=== PATIENT | male | born 1970 | race Caucasian/White ===

== ENCOUNTER → 2016-08-19 | Outpatient (CLI) | payer BC ==
[~2016-08-19] MED LIST: AMLO-114 PO; ASPI81TA28 PO; ATOR-22 PO; CARV25TA2 PO; CRDCD240 PO; HYDR-4717 PO; LISI40TA PO; METF500T5 PO
[2016-08-19 09:59] LABS: ALT/SGPT 34 U/L (12-78); BLOOD UREA NITROGEN 10 mg/dl (7-18); BUN/CREATININE RATIO 8.7 (10-20); CARBON DIOXIDE 25 mmol/L (21-32); CHLORIDE 108 mmol/L (98-107); CHOLESTEROL 141 mg/dl (0-200); GLUCOSE 134 mg/dl (70-99); POTASSIUM 4.1 mmol/L (3.5-5.1); SODIUM 143 mmol/L (136-145); TRIGLYCERIDES 101 mg/dl (0-150); VERY LOW DENSITY LIPOPROT CALC 20 mg/dl
[2016-08-19 10:06] LABS: ALB/GLOB RATIO 1.1 (0.9-2); ALKALINE PHOSPHATASE 96 U/L (45-117); AST/SGOT 13 U/L (15-37); HDL CHOLESTEROL 47 mg/dl; LDL CHOLESTEROL CALCULATED 74 mg/dl
[2016-08-19 10:09] LABS: ESTIMATED AVERAGE GLUCOSE 140 mg/dl; HA1C FLAG Normal (Normal)
== END | disposition home or self-care (01) ==
LOC: C.LAB1850 08:01
PROVIDERS: ATTEND Family Medicine
DX: I10 Essential (primary) hypertension (principal); E78.00 Pure hypercholesterolemia, unspecified; E11.9 Type 2 diabetes mellitus without complications

== ENCOUNTER 2023-03-14 09:15 | Observation (INO) ==
--- NOTE | 2023-03-14 10:44 | Emergency Department Note ---
ED Provider Note History of Present Illness Chief Complaint: Skin Problem Stated Complaint: abscess with cellulitous Time Seen by Provider: 03/14/23 10:43 This is a 60-year-old male with a history of diabetes, atrial fibrillation on Xarelto, accompanied by his , who is referred to the emergency department by [facility] for worsening infection in his right groin. Patient states that he developed a small bump in this area about 2 weeks ago which has subsequently worsened. He was seen 3 days ago and placed on doxycycline and has been taking this medication but states the infection is getting worse, not better. It is more swollen and the redness has continued to progress. It has drained pus multiple times. He has not had any fevers or chills, no nausea or vomiting. No known history of MRSA. Does not routinely check his blood sugars. Home Medications Medication Instructions Recorded Confirmed Type metformin 1,000 mg tablet 1,000 mg PO BID #180 tabs 10/17/22 03/14/23 Rx carvedilol 25 mg tablet 25 mg PO BID #180 tabs 12/13/22 03/14/23 Rx amlodipine 10 mg tablet 10 mg PO PM 03/14/23 03/14/23 History atorvastatin 20 mg tablet 20 mg PO PM 03/14/23 03/14/23 History doxycycline hyclate 100 mg capsule 100 mg PO BID 03/14/23 03/14/23 History lisinopril 40 mg tablet 40 mg PO PM 03/14/23 03/14/23 History rivaroxaban 20 mg tablet (Xarelto) 20 mg PO PM 03/14/23 03/14/23 History Allergies Allergy/AdvReac Type Severity Reaction Status Date / Time No Known Allergies Allergy Unknown Verified 03/14/23 13:40 Past Med/Surg History Medical History History of colon polyps Hx of Lyme disease [place] JUNE 2021? Hx of gout Prediabetes Hx of basal cell carcinoma Hx of testicular cancer SURGERY>LATER METS TO LIVER/LUNG REQUIRING CHEMO Hx of blood clots 2002>CLOT TO ARM *DURING CHEMO (WAS ON BLOOD THINNERS) Hx of cardiomyopathy History of COVID-02 AUG 2021>SYMPTOMS RESOLVED Sleep apnea MILD>NO DEVICE Interstitial pulmonary fibrosis Peripheral neuropathy Obesity CAD (coronary artery disease) Dyslipidemia Hypertension Surgical History Hx of colonoscopy History of tooth extraction History of cardiac cath NO STENTS (2012) History of bronchoscopy History of orchiectomy, unilateral left Family History Grandfather Myocardial infarction Mother Hypertension Other No family history of adverse response to anesthesia Denies family history of Colon cancer Ovarian cancer Prostate cancer Diabetes Breast cancer Lung cancer Stroke Social History Smoking Status: Never smoker Second Hand Exposure: No; Do You Dip or Chew Tobacco: No; Hx Alcohol Use: Yes Alcohol type: beer Alcohol Intake Frequency: 4 or More x per/Week Alcohol Intake Frequency Comment: 4 -5 drinks/week Hx Substance Use: No Preferred Language: Albanian Communication Ability: Effective Visual Impairment: No Limitations Hearing Ability: Normal Auto Design Detailer Required: No Beliefs That Will Affect Care: None marital status: Current Living Situation: Spouse current occupational status: employed 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 How many Children do You have: 1 Feels Safe at Home: Yes Childhood Exposure to Second-Hand Smoke: No Diet: regular caffeine: Yes during the past year weight has: remained stable Dental Care, Regularly: Yes Physical Activity Frequency: 1-2 Times per Week Physical Activity Frequency Comment: walking Seatbelt Use: always Sunscreen Use: Yes Assistive Devices: Glasses Physical Exam Vital Signs Vital Signs - 24 hr 03/14/23 09:30 03/14/23 12:45 Temperature 97.9 F Temperature Source Temporal Artery Scan Pulse Rate 79 Pulse Rate [Finger] 81 Respiratory Rate 18 18 Respiratory Effort / Characteristics Non-Labored Spontaneous Respiratory Depth Normal Respiratory Pattern Regular Blood Pressure 133/94 Blood Pressure [Right Arm] 130/96 Blood Pressure Mean 107 Blood Pressure Mean [Right Arm] 107 Blood Pressure Position Sitting Pulse Oximetry 97 95 Oxygen Delivery Method Room Air Room Air Sepsis Recent Fever Within 48 Hours No Sepsis New/Unexplained Change in Mental Status N/A Sepsis Action Taken by Nursing No Action Required CONSTITUTIONAL: Well developed, well nourished, in no acute distress, pleasant. EYES: conjunctivae normal, extraocular muscles intact. NECK: Full active range of motion. LYMPHATIC: Possible right inguinal adenopathy RESPIRATORY: Breathing unlabored and symmetric. ABDOMEN: Normal bowel sounds. Soft, nontender, no peritonitis. MUSCULOSKELETAL: Moves all extremities at all joints without pain or difficulty. No cyanosis or edema. Back with full range of motion. SKIN: [place], warm, dry. There is an abscess present on the right anterior hip overlying the anterior superior iliac spine. This feels fluctuant and there is significant surrounding erythema roughly 8 by 15 cm. The underlying erythema is indurated and tender. There is no active drainage NEUROLOGIC: Awake, alert, oriented. No focal deficits PSYCHIATRIC: Appropriate. Normal affect Course Administered Medications Rivaroxaban (Rivaroxaban 20 Mg Tab) 20 mg PO QDD THADDEUS Stop: 04/13/23 17:14 Last Admin: 03/14/23 17:31 Dose: 20 mg Documented By: JKB Discontinued Medications Cefepime HCl (Maxipime) 2,000 mg in 20 mls @ 5 mls/min IV NOW STA; Protocol Stop: 03/14/23 11:14 Last Admin: 03/14/23 11:22 Dose: 5 mls/min Documented By: DARCIE Vancomycin HCl 2,500 mg/ (Sodium Chloride) 550 mls @ 200 mls/hr IV NOW ONE Stop: 03/14/23 14:47 Last Infusion: 03/14/23 16:05 Dose: Infused Documented By: Admin: 03/14/23 12:39 Dose: 200 mls/hr Documented By: HASMUKH Ioversol (Optiray 320 500ml) 84 ml IV ONCE ONE Stop: 03/14/23 12:25 Last Admin: 03/14/23 12:25 Dose: 84 ml Documented By: EDK Medical Decision Making Differential Diagnosis Abscess, cellulitis, diabetic wound, fistula, necrotizing soft tissue infection, hypoglycemia, electrolyte imbalance, sepsis, among other pathology Laboratory Data 03/14/23 11:15 03/14/23 11:15 Lab Results 03/14/23 Range/Units 11:15 WBC 8.78 (4.8-10.8) K/ul RBC 5.06 (4.70-6.10) M/uL Hgb 14.7 (14.0-18.0) g/dl Hct 43.2 (42.0-52.0) % MCV 85.4 (80.0-100.0) fL MCH 29.1 (25.0-34.0) pg MCHC 34.0 (32.0-36.0) g/dL RDW Std Deviation 40.8 (36.4-46.3) fL RDW Coeff of [place] 13.2 (11.5-14.5) % Plt Count 262 (130-400) K/uL MPV 11.2 (9.4-12.4) fL Immature Gran % (Auto) 0.5 % Neut % (Auto) 59.2 % Lymph % (Auto) 26.4 % [place] % (Auto) 10.5 % Eos % (Auto) 3.1 % Baso % (Auto) 0.3 % Neut # (Auto) 5.20 (1.40-6.50) K/uL Lymph # (Auto) 2.32 (1.20-3.40) K/uL [place] # (Auto) 0.92 H (0.11-0.59) K/uL Eos # (Auto) 0.27 (0.00-0.50) K/uL Baso # (Auto) 0.03 (0.00-0.20) K/uL Immature Gran # (Auto) 0.04 (0.01-0.20) K/uL Sodium 136 (136-145) mmol/L Potassium 4.1 (3.5-5.1) mmol/L Chloride 102 (98-107) mmol/L Carbon Dioxide 26 (21-32) mmol/L Anion Gap 8 (3-11) BUN 13 (6-23) mg/dl Creatinine 0.94 (0.6-1.4) mg/dl Est Cr Clr Drug Dosing 137.1 ml/min Est GFR ( Amer) 109.1 ml/min Est GFR (Non-Af Amer) 94.2 ml/min BUN/Creatinine Ratio 13.8 (10-20) Glucose 186 H (70-99(Fasting)) mg/dl Calcium 9.3 (8.6-10.3) mg/dl Total Bilirubin 0.9 (0.2-1.0) mg/dl AST 17 (13-39) U/L ALT 27 (7-52) U/L Alkaline Phosphatase 100 (34-104) U/L Total Protein 7.6 (6.0-8.3) gm/dl Albumin 4.3 (3.4-5.0) gm/dl Globulin 3.3 (2.5-4.0) gm/dl Albumin/Globulin Ratio 1.3 (0.9-2) Imaging Data Radiologist's Impression: Abdomen/Pelvis CT 03/14/23 11:08 CT SCAN OF THE ABDOMEN AND PELVIS WITH IV CONTRAST CLINICAL HISTORY: Right groin pain. COMPARISON STUDY: No priors. TECHNIQUE: Following the IV administration of 84 cc of Optiray 320, CT scan of the abdomen and pelvis is performed from the lung bases to the proximal femora. Images are reviewed in the axial, sagittal, and coronal planes. IV contrast was administered without complication. A dose lowering technique was utilized adhering to the principles of ALARA. CT DOSE: 1608.56 mGy.cm FINDINGS: Lung bases: The heart is normal in size and without pericardial effusion. There is advanced coronary artery atherosclerosis. There are numerous calcified granulomas. Scarring/atelectasis is noted at both lung bases. No airspace consolidation typical for pneumonia or pleural effusion is identified. Liver: The contrast-enhanced liver is normal in size, contour, and attenuation. There is no intrahepatic biliary ductal dilatation. The hepatic veins and portal veins are patent. Gallbladder: Unremarkable. Spleen: Normal in size and attenuation. Pancreas: Unremarkable. Adrenal glands: Unremarkable. Kidneys: The contrast enhanced kidneys are normal in size and without hydronephrosis. The kidneys enhance symmetrically. Abdominal vasculature: The abdominal aorta is normal in course and caliber Advanced atherosclerotic calcification. Bowel: There is no bowel obstruction. The appendix is well-visualized and normal. Peritoneum: There is no intraperitoneal free air or abdominal ascites. There is a small fat-containing umbilical hernia. Lymphadenopathy: None. Pelvic viscera: The bladder, prostate, and seminal vesicles are normal as visualized. Skeletal structures: No lytic or blastic lesions are seen. Soft tissues: There is stromal thickening and subcutaneous soft tissue induration noted in the right groin. No fluid collection is seen to suggest abscess. IMPRESSION: 1. Findings suggest cellulitis of the right groin. No fluid collection is seen to indicate abscess. Correlate clinically. 2. There is age-advanced atherosclerotic coronary artery calcification. There is also advanced atherosclerotic calcification of the abdominal aorta. 3. Additional findings as above.. ACT 112: Negative or not required by law. Electronically signed by: Tai Wilhelm M.D. 03/14/2023 12:40 PM MDM Narrative This is a pleasant 52-year-old male who presents to the emergency department with a worsening infection in his right hip/groin region. He has taken doxycycline for 3 days and symptoms are worsening. This has drained multiple times. No systemic symptoms. See above for further details. Infection appears to be central abscess with significant surrounding erythema as described above. Traced with skin marker. Question some right inguinal adenopathy as well. As the patient is failing doxycycline, an IV was inserted and labs were obtained. Patient was treated with cefepime and vancomycin after discussing antibiotic recommendations with the ED clinical pharmacist. Case reviewed with ED attending Dr. Caldwell. We decided to obtain a CT of the abdomen and pelvis to fully evaluate the infection Labs no leukocytosis or anemia. Normal renal function. No electrolyte disturbance. No transaminitis. Glucose elevated 186 CT abdomen pelvis shows cellulitis of the right groin with no fluid collection seen. I attempted to unroof the central aspect of the area of maximal swelling and this yielded blood, no pus. Discussed options for management. [place] that it would be prudent to admit the patient for IV antibiotics given significant worsening on oral doxycycline and risk for this to develop into a systemic infection. Patient agreeable with this plan. Case was reviewed with Shankar Thomas PA-C who agrees to admit the patient under Dr. Bond Impression Cellulitis of groin, right Discharge Plan Visit Data Chief Complaint: Skin Problem Stated Complaint: abscess with cellulitous ED Provider: Tai Caldwell ED Midlevel Provider: Kj Lezama Discharge Problem: Cellulitis of groin, right Patient Disposition: Admitted As Inpatient Condition: Fair Discharge Instructions Interventions: ED Discharge Assessment Last Done: 03/14/23 17:05
[2023-03-14] MEDS ORDERED: CEFEPIME 2,000 MG/20 ML VIAL IV STA (11:11)
[2023-03-14 11:36] LABS: Basophils # (auto) 0.03 K/uL (0.00-0.20); Basophils % (auto) 0.3 %; Eosinophils # (auto) 0.27 K/uL (0.00-0.50); Eosinophils % (auto) 3.1 %; Hematocrit (blood only) 43.2 % (42.0-52.0); Hemoglobin 14.7 g/dl (14.0-18.0); Immature Granulocytes # (auto) 0.04 K/uL (0.01-0.20); Immature Granulocytes % (auto) 0.5 %; Lymphocytes # (auto) 2.32 K/uL (1.20-3.40); Lymphocytes % (auto) 26.4 %; Mean Corpuscular Hemoglobin 29.1 pg (25.0-34.0); Mean Corpuscular Volume 85.4 fL (80.0-100.0); Mean Platelet Volume 11.2 fL (9.4-12.4); Monocytes # (auto) 0.92 K/uL (0.11-0.59); Monocytes % (auto) 10.5 %; Neutrophils % (auto) 59.2 %; Platelet Count 262 K/uL (130-400); RDW Coefficient of Variation 13.2 % (11.5-14.5); RDW Standard Deviation 40.8 fL (36.4-46.3); Red Blood Count 5.06 M/uL (4.70-6.10); White Blood Count 8.78 K/ul (4.8-10.8)
[2023-03-14 11:51] LABS: Albumin Globulin Ratio 1.3 (0.9-2); Albumin Level 4.3 gm/dl (3.4-5.0); BUN Creatinine Ratio 13.8 (10-20); Bilirubin,Total 0.9 mg/dl (0.2-1.0); Calcium 9.3 mg/dl (8.6-10.3); Creatinine Clr Calc Pharmacy 137.1 ml/min; Est GFR (African American) 109.1 ml/min; Est GFR (Non-African American) 94.2 ml/min; Globulin 3.3 gm/dl (2.5-4.0); Potassium 4.1 mmol/L (3.5-5.1); Total Protein 7.6 gm/dl (6.0-8.3)
[2023-03-14] MEDS ORDERED: VANCOMYCIN HCL 2,500 MG in SODIUM CHLORIDE 0.9% 500 ML IV ONE (12:03)
[2023-03-14] MEDS ORDERED: VANCOMYCIN CONSULT ACTIVE PRN (12:03)
[2023-03-14] MEDS ORDERED: OPTIRAY 320 500ml IV ONE (12:24)
--- NOTE | 2023-03-14 12:41 | CT Scan Report ---
CT SCAN OF THE ABDOMEN AND PELVIS WITH IV CONTRAST CLINICAL HISTORY: Right groin pain. COMPARISON STUDY: No priors. TECHNIQUE: Following the IV administration of 84 cc of Optiray 320, CT scan of the abdomen and pelvi s is performed from the lung bases to the proximal femora. Images are reviewed in the axial, sagittal , and coronal planes. IV contrast was administered without complication. A dose lowering technique wa s utilized adhering to the principles of ALARA. CT DOSE: 1608.56 mGy.cm FINDINGS: Lung bases: The heart is normal in size and without pericardial effusion. There is advanced coronary artery atherosclerosis. There are numerous calcified granulomas. Scarring/atelectasis is noted at bot h lung bases. No airspace consolidation typical for pneumonia or pleural effusion is identified. Liver: The contrast-enhanced liver is normal in size, contour, and attenuation. There is no intrahepa tic biliary ductal dilatation. The hepatic veins and portal veins are patent. Gallbladder: Unremarkable. Spleen: Normal in size and attenuation. Pancreas: Unremarkable. Adrenal glands: Unremarkable. Kidneys: The contrast enhanced kidneys are normal in size and without hydronephrosis. The kidneys enh ance symmetrically. Abdominal vasculature: The abdominal aorta is normal in course and caliber Advanced atherosclerotic calcification. Bowel: There is no bowel obstruction. The appendix is well-visualized and normal. Peritoneum: There is no intraperitoneal free air or abdominal ascites. There is a small fat-containin g umbilical hernia. Lymphadenopathy: None. Pelvic viscera: The bladder, prostate, and seminal vesicles are normal as visualized. Skeletal structures: No lytic or blastic lesions are seen. Soft tissues: There is stromal thickening and subcutaneous soft tissue induration noted in the right groin. No fluid collection is seen to suggest abscess. IMPRESSION: 1. Findings suggest cellulitis of the right groin. No fluid collection is seen to indicate abscess. C orrelate clinically. 2. There is age-advanced atherosclerotic coronary artery calcification. There is also advanced athero sclerotic calcification of the abdominal aorta. 3. Additional findings as above.. ACT 112: Negative or not required by law. Electronically signed by: Tai Wilhelm M.D. 03/14/2023 12:40 PM
--- OUTSIDE RECORDS SUMMARY | 2023-03-14 13:15 | External Medical Summary | Summary of Care ---
Author Name Unknown Organization [facility] Address [address] [place] [address] Phone [phone] Care Team Providers Care Metal Roofing Mechanic Name Role Phone Juanjo Bond MD Primary Care Provider [phone] Reason for Visit * Reason Comments Genetic Counseling * Evaluate & Treat - Unlimited Visits (Within 10 days (routine)) - Closed Specialty Diagnoses / Procedures Referred By Contjerry t Referred To Contact Medical Genetics / Hematology Oncology Diagnoses History of colonic polyps Case, Rogers Mike, DO [address] [address] Referral ID Status Reason Start Date Expiration Date V isits Requested Visits Authorized [id number] Closed Specialty Services Required 07/12/2022 [id number] Encounter Details Date Type Department Care Team (Latest Contact Info) Description 02/24/2023 10:45 AM EST Telemedicine Genetics [facility], C [address] [place] [address] Devorah Fung, MS [address] [place] [address] Adenoma of colon*; Personal history of colonic polyps; Personal history of testicular cancer; History of basal cell carcinoma; Encounter for nonprocreative genetic counseling Allergies No known active allergiesdocumented as of this encounter (statuses as of 02/27/2023) Medications Medication Sig Dispensed Refills Start Date End Date Status METFORMIN ER 500 MG PO TB24 1 tab twice daily 0 Active ATORVASTATIN CALCIUM 10 MG PO TABS unsure of dosage daily 0 Active ASPIRIN 81 MG PO TABS 1 tab daily 0 Ac tive NIFEDIPINE ER 30 MG PO TB24 1 tab daily 0 Active CARVEDILOL 25 MG PO TABS 1 tab twice daily 0 Active documented as of this encounter (statuses as of 02/27/2023) Active Problems Problem Noted Date Diagnosed Date Multiple pigmented nevi 11/23/2013 History of basal cell carcinoma 11/19/2011 Overview: left posterior neck 12/25 documented as of this encounter (statuses as of 02/27/2023) Social History Tobacco Use Types Packs/Day Years Used Date Smoking Tobacco: Never Alcohol Use Standard Drinks/Week Comments Yes 0 (1 standard drink = 0.6 oz pur e alcohol) occ Sex and Gender Information Value Date Recorded Sex Assigned at Not on file Gender Identity Not on file Sexual Orientation Not on file Job Start Date Occupation Industry Not on file Not on file Not on file documented as of this encounter Patient Instructions * Patient Instructions* Devorah Fung MS - 02/24/2023 11:01 AM EST You met with Devorah Fung MS, [facility] on 02/24/2023 for a Cancer Genetics Risk Assessment. TODAY'S SUMMARY If you have questions about your risk assessment, evaluation, testing process, or results, contact our clinic at [phone] or send a [facility] message. You agreed to complete genetic testing today. Results are expected in ~3 weeks from sample collection and will appear in the [facility] portal under "Test Results." I will contact you with your results. You can request an electronic copy of your report through [facility]: [facility] Patient Registration. Insurance Coverage: The laboratory ([facility] will complete prior authorization for genetic testing and will notify you via text or email of billing policies. If your estimated out of pocket expense after insurance processing is >$100, [facility] will contact you to discuss options based on your specific financial situation. Visit this link for more information or contact the laboratory billing department at [phone] or [email or web address]. Sample Collection: Your blood draw order has been signed and you can visit any [facility] lab to have this collected. Lab order: [facility] [facility] Colon Cancer Genetics Panel Ordering Provider: [facility], , [address] [place] [address], Hours:M-F 7 am - 5 pm; Sat 8 am - 3 pm Read more about genetic testing here: Hereditary Cancer Genetic Testing - Patient Guide For any genetic test, there are three types of results. 1. Negative Result: A mutation that causes increased risk for cancer was not found in you. 2. Positive Result: A genetic risk factor for cancer was found. Based on your specific result, thisinformation could change your medical care. If any significant findings are reported on your testing, we may recommend a follow up visit 3. Inconclusive Result (Variant of Uncertain Significance found): An innocent until proven guilty genetic change was detected, but more research is needed to learn if it increases your chances of developing cancer or not. What should I know about genetics and cancer? Cancer is a common disease, and most often happens by chance. In some families, we can see multiplecases of sporadic cancers, because cancer becomes more common as we age and as people are exposed to different environmental risk factors over time. Only 5-10% of cancers happen because of a genetic mutation that runs in the family. Having a mutation does not mean you will get cancer; it just means you have a higher chance to get cancer than other people. Genetic Information Nondiscrimination Act of 2008: This federal law protects you from discrimination based on your genetic information and applies to health insurance. It is illegal for your health insurer to use family health history and/or genetic test results as a reason to deny you health insurance, or decide how much you pay for your health insurance. IAN does not apply to life, disability and long-term care insurance. For more information, go to [employer].org Sincerely, Devorah Fung MS, [facility] -- Licensed, Certified Genetic Counselor Cancer Genetics Risk Assessment Clinic [facility] (P) [phone] | (F) [phone] | (E) [email or web address] documented in this encounter Progress Notes * Devorah Fung MS - 02/24/2023 10:45 AM EST Cancer Genetic Risk Assessment [facility] | | Email: [email or web address] Location: [place] [address] Dept. Referring Provider: Rogers Moreno DO Name: Andrea Skinner Date: 02/24/2023 - 10:45 AM EST Present for consult: Devorah Patel, , [facility] Visit Type: Phone. The patient is located in the [facility]. The treating clinician is located not in a hospital location. After connecting to the patient via telephone, the patient was identified by name and date of . Patient was then informed that this was a telephone call only visit. The patient agreed to participate. Visit Disposition: Routine follow-up Total call duration was 22 minutes. REASON FOR VISIT: Evaluation for Hereditary Cancer Syndrome HPI: Andrea Skinner is a 52 year old male assigned at who has been referred to the Cancer Genetics Risk Assessment Clinic due to a personal history of multiple colon polyps . ASSESSMENT: Andrea Skinner has a personal history of >20 colon polyps that is concerning for a hereditary predisposition. NCCN criteria for genetic testing for Polyposis is met. Verbal consent for genetic testing obtained. PLAN: Test Ordered: Hereditary Colorectal Cancer Expanded Panel at [facility] (33 genes) Genes Included: APC, JACEK, AXIN2, BLM, BMPR1A, BUB1, BUB1B, CEP57, CHEK2, EPCAM*, FLCN, FOCAD, GALNT12, GREM1*, MBD4, MLH1, MLH3, MSH2, MSH3, MSH6, MUTYH, NTHL1, PALB2, PMS2, POLD1, POLE, PTEN, RNF43,RPS20, SMAD4, STK11, TP53, TRIP13 [facility] Core Panel: Polyposis Results disclosure preferred by: MyG. Blood sample to be collected at a later date; results anticipated in 3 weeks from sample collection. PAST MEDICAL HISTORY: No past cancer history. Breast Hx: No history of breast biopsies or surgeries. Hx: No prior PSA due to age. Testicular cancer dx 2000; s/p chemotherapy and radiation. Gastro Hx: >20 tubular adenomas identified over 2 colonoscopies. First in December 2021, 6mo in June 2022. Derm Hx: Personal history of BCC, s/p excision ~10yrs ago. Other Hx: had a really severe pneumonia years and requried multiple chest xrays No past medical history on file. No past surgical history on file. Social History Tobacco Use Smoking status: Never Smokeless tobacco: Not on file Substance Use Topics Alcohol use: Yes Comment: occ Drug use: No FAMILY HISTORY: This self-reported family history was collected in the absence of complete medical records. ?If the family history changes or more information is obtained, the patient was asked to contact our clinic as this may alter the assessment and recommendations.? No Ashkenazi Anabaptism ancestryreported. Per patient report, no relatives have had genetic testing for inherited cancer risk. . Family History Problem Relation Age of Onset Colon polyps Father Lung cancer Other TOB+ Other (Brain Tumor) Other PEDIGREE: No pedigree images are attached to the encounter RISK ASSESSMENT & CONSULT SUMMARY: I recommended genetic testing for Andrea Skinner based on the personal history of at least 20 adenomasfound over 2 colonoscopies, performed for screening only, at 52 . We discussed the timing and utility of targeted (ie: guidelines-based panels) versus expansive and natarajan-cancer panels. Andrea elected a broad, multi-cancer panel. Polyps: The likelihood to identify a pathogenic/likely pathogenic variant associated with a hereditary polyposis syndrome approaches 10% with the presence of 10 intestinal adenomas (Cheng et al., 2017). In polyposis cases involving <100 polyps, the detection rate of an inherited etiology is substantially lower compared to cases with more than 100 polyps as there is considerable overlap with environmental or sporadic etiologies. The NCCN currently recommends genetic testing for adenomatous polyposis genes in individuals with:,Personal history of 20+ cumulative adenomas. Similarly, the [place] College of Gastroenterologistsrecommend genetic evaluation for an inherited polyposis syndrome is recommended if there are >10cumulative adenomas; the [place] Society of Colon and Rectal Surgeons Clinical Practice Guidelines recommend evaluation for polyposis syndromes if >20 lifetime adenomas. GENETIC TEST EDUCATION: We discussed the risks, benefits, and limitations testing for hereditary cancer syndromes using a multigene panel. Signs of inherited cancer risk: multiple family members with related cancers, cancer in several generations of one side of a family, early-onset cancers (<45y), individuals with >1 cancer diagnosis. Most hereditary cancer conditions are inherited in an autosomal dominant pattern. Cancer riskscan differ between males and females in the same family who share a disease-causing variant. Nature of genetic risk: Individuals with a pathogenic variant in a cancer- related gene may have significantly higher cancer risk. Some cancers may be difficult to detect and/or treat. Identifying those at high risk may warrant additional screening, surveillance, and interventions which could aid inrisk- reduction and early diagnosis, thereby increasing the chances of successful treatment and survival. Nuances of genetic testing: Some genes are well-described with specific screening and management recommendations from national experts (e.g., NCCN). Testing may include newly discovered genes where cancer risk and management guidelines are not well understood or defined. Some cancer types do not have adequate screening available at this time. Genetic Information Non-discrimination Act (IAN) detailed in AVS. This 2008 law has provisions against discrimination based on genetic status for employment and health insurance; it does not cover other insurance (e.g. life insurance, long- term disability insurance). Discussed possible results: Positive result: Pathogenic or Likely Pathogenic Variant identified. Medical management dependent upon the gene in which the P/LP variant was identified and will be discussed at the time of result disclosure. Discussed potential surveillance and early-detection options, risk-reducing medications, and surgical risk reduction options. Discussed that there may be risk to close relatives to have the same genetic variant. Negative result (No variants identified): Medical management and cancer screening will be based on family history and physicians recommendations. Variant of Uncertain Significance ("VUS" identified): Medical management would be the same as a negative result as many VUS are eventually reclassified as benign. If results are negative or VUS, Andrea should continue colon/egd surveillance based on polyp burden alone. If negative, preventative surgery would not be recommended. PSYCHOSOCIAL HISTORY: We discussed the possible psychological implications of genetic testing, issues of family dynamics,and concerns regarding confidentiality, insurance coverage, and genetic discrimination. Motivation for testing: Interested in preventative care and early-detection and concerned about risk to family members Family communication: no concerns. Family Sharing: To be addressed at result disclosure. Consent: I provided an opportunity for the patient to ask questions. We obtained the proper consentand confirmation of the patient's understanding of the information discussed. Devorah Fung MS, [facility] Licensed, Certified Genetic Counselor This note is shared with Andrea Skinner electronically. ICD-10-CM 1. Adenoma of colon D12.6 2. Personal history of colonic polyps Z86.010 3. Personal history of testicular cancer Z85.47 4. History of basal cell carcinoma Z85.828 5. Encounter for nonprocreative genetic counseling Z71.83 documented in this encounter Plan of Treatment Pending Results Name Type Priority Associated Diagnoses Date /Time INVITAE COLON CANCER PANEL Lab Routine Adenoma of colon Personal history of colonic polyps Personal history of testicular cancer History of basal cell carcinoma Encounter for nonprocreative genetic counseling 02/25/2023 11:34 AM EST Scheduled Orders Name Type Priority Associated Diagnoses Orde r Schedule INVITAE COLON CANCER PANEL Lab Routine Adenoma of colon Personal history of colonic polyps Personal history of testicular cancer History of basal cell carcinoma Encounter for nonprocreative genetic counseling Expected: 03/06/2023 (Approximate), Expires: 08/26/2023 Health Maintenance Due Date Last Done Comments Hepatitis B (1 of 3 - 3-dose series) 1972 Lipid Panel 1972 COVID-19 Vaccine (#1) 06/30/1973 Depression Screening 1984 HIV Screening 12/31/1987 Hepatitis C Screening 1990 DTaP,Tdap,and Td Vaccines (1 - Tdap) 12/31/1991 Cologuard 2017 Colonoscopy 2017 Colorectal Cancer Screening 2017 Fecal Occult Blood Test 2017 Sigmoidoscopy 2017 Influenza Vaccine (FLU shot) (#1) 2022 Zoster Vaccines (1 of 2) 2022 GARDASIL-HPV IMMUNIZATION SERIES Aged Out No longer eligible based on patient's age to complete this topic MENINGOCOCCAL (MENACTRA/MENVEO) Aged Out No longer eligible based on patient's age to complete this topic Pneumococcal Vaccine: Pediat rics (0 to 5 Years) and At-Risk Patients (6 to 64 Years) Aged Out No longer eligible b ased on patient's age to complete this topic documented as of this encounter Medical Devices Not on filedocumented as of this encounter Visit Diagnoses Diagnosis Adenoma of colon- Primary Personal history of colonic polyps Personal history of testicular cancer Personal history of malignant neoplasm of testis History of basal cell carcinoma Personal history of other malignant neoplasm of skin Encounter for nonprocreative genetic counseling documented in this encounter Care Teams Metal Roofing Mechanic Relationship Specialty Start Date End Date Juanjo Bond MD [address] [place] [address] PCP - General Internal Medicine 11/24/14 documented as of this encounter
--- OUTSIDE RECORDS SUMMARY | 2023-03-14 13:15 | External Medical Summary | Summary of Care ---
Author Name Unknown Organization [facility] Address [address] [place] [address] Phone [phone] Care Team Providers Care Pet Resort Concierge Name Role Phone Juanjo Bond MD Primary Care Provider [phone] [phone] Reason for Visit * Reason Onset Date Comments Abnormal Test Results 03/12/2023 CHEK2 path ogenic variant Encounter Details Date Type Department Care Team (Late st Contact Info) Description 03/12/2023 Telephone Genetics [facility], C [address] [place] [address] Devorah Fung, MS [address] [place] [address] Abnormal Test Results (CHEK2 pathogenic va... Allergies No known active allergiesdocumented as of this encounter (statuses as of 03/12/2023) Medications Medication Sig Dispensed Refills Start Date [...] as of this encounter (statuses as of 03/12/2023) Active Problems Problem Noted Date Diagnosed Date Multiple pigmented nevi 11/23/2013 History of basal cell carcinoma 11/19/2011 Overview: left posterior neck 12/25 documented as of this encounter (statuses as of 03/12/2023) Social History Tobacco Use Types Packs/Day Years [...] on file documented as of this encounter Miscellaneous Notes * Telephone Encounter - Devorah Fung MS - 03/12/2023 11:56 AM EST I contacted Andrea Skinner today to disclose genetic test results. Spoke to patient directly. Return to Cancer Genetics: 2y Summary: A pathogenic variant in CHEK2 was reported, but CHEK2 is not associated with polyposis. BUB1 and RNF43 variants are still considered preliminary evidence for colorectal cancer (vs polyposis), so I'm not convinced those are viable answers for the polyp development either. We discussed that I think it's most likely Andrea's polyps are related to his past history of radiation therapy due to his testicular cancer. I did also recommend f/u via telehealth with us every 2y for updates to CHEK2 management and to evaluate the role for update testing dependent upon advances in technology. Cancer Risks & Management: - colorectal cancer risk best estimated based on adenoma burden. - at least 5-10% d/t CHEK2 variant. - possible, but not definitive, risk for thyroid and prostate cancers both of which are screened during routine physical exams. Risk to Relatives: Andrea should be encouraged to discuss this result with family members; close relatives have up to a 50% chance of carrying this variant and having the associated increased cancer risk. Brother in [place], sister in [place]. The genetic testing laboratory has a policy of offering genetic testing to family members at no charge for 150 days after [employer] report issue date. Andrea Skinner previously provided verbal consent to share genetic testing results and pedigree with immediate family members for their care. Devorah Fung MS, [facility] Licensed, Certified Genetic Counselor Cancer Genetics Risk Assessment Clinic, [facility] 03/12/2023 * Telephone Encounter - Lola Rapp CHRA - 03/12/2023 8:36 AM EST Genetic test results received for Andrea Skinner. A genetic counselor will contact the patient directly to disclose results. 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 ClinVarID: N/A Test Ordered: Hereditary Colorectal Cancer Expanded Panel at [facility] (33 genes) Genes Included: APC, JACEK, AXIN2, BLM, BMPR1A, BUB1, BUB1B, CEP57, CHEK2, EPCAM*, FLCN, FOCAD, GALNT12, GREM1*, MBD4, MLH1, MLH3, MSH2, MSH3, MSH6, MUTYH, NTHL1, PALB2, PMS2, POLD1, POLE, PTEN, RNF43,RPS20, SMAD4, STK11, TP53, TRIP13 Variant of uncertain significance (VUS) identified: BUB1, c.2951A>G (p.[id number]); ClinVarID: N/A Variant of uncertain significance (VUS) identified: RNF43, c.1114C>T (p.[id number]); ClinVarID: [id number] BALWINDER Garcia 03/12/2023 8:38 AM documented in this encounter Plan of Treatment Health Maintenance Due Date Last Done Comments [...] as of this encounter Visit Diagnoses Diagnosis 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
--- OUTSIDE RECORDS SUMMARY | 2023-03-14 13:15 | External Medical Summary | Summary of Care ---
Author Name Unknown Organization [facility] Address [address] [place] [address] Phone [phone] Care Team Providers Care Certified Solid Waste Facility Operator Name Role Phone Juanjo Bond MD Primary Care Provider [phone] [phone] Reason for Visit * Reason Onset Date Comments Genetic Counseling 07/15/2022 Referral Encounter Details Date Type Department Care Team (Late st Contact Info) Description 07/15/2022 Telephone Genetics Hem[facility], [facility] [address] [place] [address] Nikole Torres CHRA Genetic Counseling (Referral) Allergies No known active allergiesdocumented as of this encounter (statuses as of 02/19/2023) Medications Medication Sig Dispensed Refills Start Date [...] as of this encounter (statuses as of 02/19/2023) Active Problems Problem Noted Date Diagnosed Date Multiple pigmented nevi 11/23/2013 History of basal cell carcinoma 11/19/2011 Overview: left posterior neck 12/25 documented as of this encounter (statuses as of 02/19/2023) Social History Tobacco Use Types Packs/Day Years Used Date Smoking Tobacco: Never Alcohol Use Standard Drinks/Week Comments Yes 0 (1 standard drink = 0.6 oz pur e alcohol) occ Sex and Gender Information Value Date Recorded Sex Assigned at Not on file Gender Identity Not on file Sexual Orientation Not on file documented as of this encounter Miscellaneous Notes * Telephone Encounter - Lola Rapp CHRA - 02/19/2023 2:14 PM EST Images from the original note were not included. I spoke with Andrea Skinner and confirmed an upcoming Cancer Genetics telemedicine appointment with Devorah Fung CGC on 02/24/2023. A family history was gathered and documented. Patient confirmed theywill be in the [facility] for the appointment. BALWINDER Garcia 02/19/2023 2:14 PM documented in this encounter Plan of Treatment Upcoming Encounters Date Type Department Care Team (Late st Contact Info) Description 02/24/2023 10:45 AM EST Telemedicine Genetics [facility], [facility] [address] [place] [address] Devorah Fung, MS [address] [place] [address] Health Maintenance Due Date Last Done Comments [...] Not on filedocumented as of this encounter Care Teams Certified Solid Waste Facility Operator Relationship Specialty Start Date End Date Juanjo Bond MD [address] [place] [address] PCP - General Internal Medicine 11/24/14 documented as of this encounter
--- OUTSIDE RECORDS SUMMARY | 2023-03-14 13:15 | External Medical Summary | Summary of Care ---
Author Name Unknown Organization [facility] Address [address] [place] [address] Phone [phone] Care Team Providers Care Adjunct Writing Instructor Name Role Phone Juanjo Bond MD Primary Care Provider [phone] Reason for Visit * Reason Onset Date Comments Abnormal Test Results 03/12/2023 CHEK2 path ogenic variant Encounter Details Date Type Department Care Team (Late st Contact Info) Description 03/12/2023 Telephone Genetics [facility], C [address] [place] [address] Devorah Fung, MS [address] [place] [address] Abnormal Test Results (CHEK2 pathogenic [...] Ordered: Hereditary Colorectal Cancer Expanded Panel at [facility] (33 genes) Genes Included: APC, JACEK, AXIN2, BLM, BMPR1A, BUB1, BUB1B, CEP57, CHEK2, EPCAM*, FLCN, FOCAD, GALNT12, GREM1*, MBD4, MLH1, MLH3, MSH2, MSH3, MSH6, MUTYH, NTHL1, PALB2, PMS2, POLD1, POLE, PTEN, RNF43,RPS20, SMAD4, STK11, TP53, TRIP13 Variant of uncertain significance (VUS) identified: BUB1, c.2951A>G (p.[id number]); ClinVarID: N/A Variant of uncertain significance (VUS) identified: RNF43, c.1114C>T (p.[id number]); ClinVarID: [id number] BALWINDER Garcia 03/12/2023 8:38 AM documented in [...] filedocumented as of this encounter Care Teams Adjunct Writing Instructor Relationship Specialty Start Date End Date Juanjo Bond MD [address] [place] [address] PCP - General Internal Medicine 11/24/14 documented as of this encounter
--- OUTSIDE RECORDS SUMMARY | 2023-03-14 13:15 | External Medical Summary | Summary of Care ---
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 [address] Deovrah Fung, MS [address] [place] [address] Abnormal Test Results (CHEK2 pathogenic [...] Ordered: Hereditary Colorectal Cancer Expanded Panel at [facility] (33 genes) Genes Included: APC, JACEK, AXIN2, BLM, BMPR1A, BUB1, BUB1B, CEP57, CHEK2, EPCAM*, FLCN, FOCAD, GALNT12, GREM1*, MBD4, MLH1, MLH3, MSH2, MSH3, MSH6, MUTYH, NTHL1, PALB2, PMS2, POLD1, POLE, PTEN, RNF43,RPS20, SMAD4, STK11, TP53, TRIP13 Variant of uncertain significance (VUS) identified: BUB1, c.2951A>G (p.[id number]); ClinVarID: N/A Variant of uncertain significance (VUS) identified: RNF43, c.1114C>T (p.[id number]); ClinVarID: [id number] BALWINDER Garcia 03/12/2023 8:38 AM documented in [...] filedocumented as of this encounter Care Teams Administration Clerk Relationship Specialty Start Date End Date Juanjo Bond MD [address] [place] [address] PCP - General Internal Medicine 11/24/14 documented as of this encounter
--- OUTSIDE RECORDS SUMMARY | 2023-03-14 13:15 | External Medical Summary ---
Author Name Unknown Address Unknown Organization : Laboratory Report Ordering Provider Test Date Status MARGRET MIMS 02/25/2023 11:34:24 Final 1 purple top tube Observation Date Value Abnormality Reference (Units ) Status REFERENCE LAB SCANNED REPORT 02/25/2023 11:34:24 RESULT SCAN Final Performing Location
--- OUTSIDE RECORDS SUMMARY | 2023-03-14 13:15 | External Medical Summary | Summary of Care ---
Author Name Unknown Organization [facility] Address [address] [place] [facility] [place] [place] [address] Phone [phone] Care Team Providers Care Echo Vascular Tech Name Role Phone Juanjo Bond MD Primary Care Provider [phone] Reason for Visit * Reason Comments Outpatient Testing Encounter Details Date Type Department Care Team (Late st Contact Info) Description 02/25/2023 11:50 AM EST Laboratory Laboratory, [facility] [address] [facility] [place] [id number] [facility] [address] [facility] [place] [address] Adenoma of colon; Personal history of colonic polyps; Personal history of testicular cancer; History of basal cell carcinoma; Encounter for nonprocreative genetic counseling Allergies No known active allergiesdocumented as of this encounter (statuses as of 02/25/2023) Medications Medication Sig Dispensed Refills Start Date [...] as of this encounter (statuses as of 02/25/2023) Active Problems Problem Noted Date Diagnosed Date Multiple pigmented nevi 11/23/2013 History of basal cell carcinoma 11/19/2011 Overview: left posterior neck 12/25 documented as of this encounter (statuses as of 02/25/2023) Social History Tobacco Use Types Packs/Day Years [...] on file documented as of this encounter Plan of Treatment Pending Results Name Type Priority Associated Diagnoses Date /Time INVITAE COLON CANCER PANEL Lab Routine Adenoma of colon Personal history of colonic polyps Personal history of testicular cancer History of basal cell carcinoma Encounter for nonprocreative genetic counseling 02/25/2023 11:34 AM EST Health Maintenance Due Date Last Done Comments [...] this encounter Visit Diagnoses Diagnosis Adenoma of colon Personal history of colonic polyps Personal history of testicular cancer Personal history of malignant neoplasm of testis History of basal cell carcinoma Personal history of other malignant neoplasm of skin Encounter for nonprocreative genetic counseling documented in this encounter Care Teams Echo Vascular Tech Relationship Specialty Start Date End Date Juanjo Bond MD [address] [place] [address] PCP - General Internal Medicine 11/24/14 documented as of this encounter
--- OUTSIDE RECORDS SUMMARY | 2023-03-14 13:15 | External Medical Summary | Summary of Care ---
Author Name Unknown Organization [facility] Address [address] [place] [address] Phone [phone] Care Team Providers Care Mixing Technician Name Role Phone Juanjo Bond MD Primary Care Provider [phone] Reason for Visit * Reason Comments Genetic Counseling * Evaluate & Treat - Unlimited Visits (Within 10 days (routine)) - Closed Specialty Diagnoses / Procedures Referred By Contjerry t Referred To Contact Medical Genetics / Hematology Oncology Diagnoses History of colonic polyps Case, Rogers Mike, DO [address] [address] Referral ID Status Reason Start Date Expiration Date V isits Requested Visits Authorized [id number] Closed Specialty Services Required 07/12/[phone] Encounter Details Date Type Department Care Team (Latest Contact Info) Description 02/24/2023 10:45 AM EST Telemedicine Genetics [facility], C [address] [place] [address] Devorah Fung, MS [address] [place] [address] Adenoma of colon*; Personal history of colonic [...] EST You met with Devorah Fung MS, [facility] on 02/24/2023 for a Cancer Genetics Risk Assessment. TODAY'S SUMMARY If you have questions about your risk assessment, evaluation, testing process, or results, contact our clinic at [phone] or send a [employer] message. You agreed to complete genetic testing today. Results are expected in ~3 weeks from sample collection and will appear in the [employer] portal under "Test Results." I will contact you with your results. You can request an electronic copy of your report through [facility] web-[facility]: [facility] Patient Registration. Insurance Coverage: The laboratory ([facility]) will complete prior authorization for genetic testing and will notify you via text or email of billing policies. If your estimated out of pocket expense after insurance processing is >$100, [facility] will contact you to discuss options based on your specific financial situation. Visit this link for more information or contact the laboratory billing department at [phone] or [email or web address]. Sample Collection: Your blood draw order has been signed and you can visit any [facility] lab to have this collected. Lab order: [facility] Colon Cancer Genetics Panel Ordering Provider: [facility], , [address] [place] [address], Hours:M-F 7 am - 5 pm; Sat [...] go to [email or web address] Sincerely, Devorah Fung MS, [facility] -- Licensed, Certified Genetic Counselor Cancer Genetics Risk Assessment Clinic Department of [facility] (P) [phone] | (F) [phone] | (E) [email or web address] documented in this encounter Progress Notes * Devorah Fung MS - 02/24/2023 10:45 AM EST Cancer Genetic Risk Assessment Clinic at [facility] | | Email: [email or web address] Location: [place] [address] Dept. Referring Provider: Rogers Moreno DO Name: Andrea Skinner Date: 02/24/2023 - 10:45 AM EST Present for consult: Devorah Patel, , [facility] Visit Type: Phone. The patient is located in the [facility]. The treating clinician is located not in [...] Ordered: Hereditary Colorectal Cancer Expanded Panel at [facility] (33 genes) Genes Included: APC, JACEK, AXIN2, BLM, BMPR1A, BUB1, BUB1B, CEP57, CHEK2, EPCAM*, FLCN, FOCAD, GALNT12, GREM1*, MBD4, MLH1, MLH3, MSH2, MSH3, MSH6, MUTYH, NTHL1, PALB2, PMS2, POLD1, POLE, PTEN, RNF43,RPS20, SMAD4, STK11, TP53, TRIP13 [facility] Core Panel: Polyposis Results disclosure preferred by: [...] alter the assessment and recommendations.? No Ashkenazi Baptism ancestryreported. Per patient report, no relatives have [...] history of 20+ cumulative adenomas. Similarly, the [employer] College of Gastroenterologistsrecommend genetic evaluation for an inherited polyposis syndrome is recommended if there are >10cumulative adenomas; the [place] Society of Colon and Rectal Surgeons Clinical [...] of the information discussed. Devorah Fung MS, [facility] Licensed, Certified Genetic Counselor This note is [...] Not on filedocumented as of this encounter Results * INVITAE COLON CANCER PANEL (02/25/2023 11:34 AM EST) External Lab Report RESULT SCAN 03/11/2023 9:41 AM EST INVITAE Blood Venous blood specimen / Unknown Venipuncture / Unknown 02/25/2023 11:34 AM EST 02/25/2023 11:34 AM EST Aileen Palacios PA-C LAB BLOOD ORDERAB LES Performing Organization Address City/State/[facility] Co de Phone Number [id number] documented in this encounter Visit Diagnoses Diagnosis Adenoma of colon- Primary Personal history of colonic polyps Personal history of testicular cancer Personal history of malignant neoplasm of testis History of basal cell carcinoma Personal history of other malignant neoplasm of skin Encounter for nonprocreative genetic counseling documented in this encounter Care Teams Mixing Technician Relationship Specialty Start Date End Date Juanjo Bond MD [address] [place] [address] PCP - General Internal Medicine 11/24/14 documented as of this encounter
--- NOTE | 2023-03-14 13:53 | History & Physical Report ---
Date of Service March 14, 2023 Assessment & Plan (1) Cellulitis of right leg: Plan: -Admit to med/surge -Currently stable and afebrile -Has had progressive erythema and swelling over the past 2 weeks after picking open a bug bite -Started on Doxycycline 3 days ago but area has continued to spread -Did have pustulous drainage yesterday -Has been afebrile, without leukocytosis, and CT of the abd/pelvis w/IV con is negative for abscess but shows sings consistent with cellulitis -S/P cefepime and vancomycin in the ED, will continue both for now to cover MRSA and Pseudomonas -Will obtain blood cultures and MRSA swab; already received antibiotics -Monitor border placed by ED staff for signs of improvement or progression -Home xarelto for DVT PPX -HH/DMII diet -AM CBC, BMP, PT/INR (2) Atrial fibrillation: Plan: -Currently in rate controlled afib -Continue Xarelto -Continue Carvedilol (3) Type 2 diabetes mellitus: Plan: -Hold metformin -Monitor BSG ACHS, goal is 110-140 -Star CF 50 ACHS -Hold CR and lantus for now as he is insulin naive -HH/DMII diet (4) Obstructive sleep apnea: Plan: -HS CPAP ordered (5) Hypertension: Plan: -Stable -Continue amlodipine and lisinopril Plan The patient was discussed with Dr. Bond at the time of the admission History of Present Illness Chief Complaint: Concern for right groin abscess Primary Care Provider: Germán Ford DO Andrea is a 52 year old male with a PMG significant for afib on Xarelto, DMiI, ischemic cardiomyopathy, nonobstructive coronary disease, HTN and obstructive sleep apnea who was sent to the [facility] ED on 03/14 from [facility] due to concerns for right groin abscess. He remained stable in the ED. Labs including CBC and CMP were unremarkable. CT of the abd/pelvis w/IV con was read as "1. Findings suggest cellulitis of the right groin. No fluid collection is seen to indicate abscess. Correlate clinically. 2. There is age-advanced atherosclerotic coronary artery calcification. There is also advanced atherosclerotic calcification of the abdominal aorta. 3. Additional findings as above..". Prior to admission the patient was given a dose of Cefepime and Vancomycin. We were asked to admit the patient for progression of his known cellulitis. At the time of the exam the patient was sitting in bed in no acute distress with his sitting bedside. He states that he initially noticed a bug bite on his right thigh approximately 2 weeks ago. It was itching him so he was picking at it and it eventually opened up. Since then he has had progressive erythema and swelling. He was seen on a tele health call 3 days ago and started on PO doxycycline. While on Doxcy the area continued to spread and drrain pus. He denies recent fevers or chills, chest pain, SOB, abd pain, nausea, vomiting, diarrhea, dysuria, hematuria, melena, and recent trauma. He is a full code and his would make medical decisions for him if he cannot make them himself. Please refer to Dr. Bond's attestation for any changes to the treatment plan Allergies Allergy/AdvReac Type Severity Reaction Status Date / Time No Known Allergies Allergy Unknown Verified 03/14/23 13:40 Home Medications Medication Instructions Recorded Confirmed Type metformin 1,000 mg tablet 1,000 mg PO BID #180 tabs 10/17/22 03/14/23 Rx carvedilol 25 mg tablet 25 mg PO BID #180 tabs 12/13/22 03/14/23 Rx amlodipine 10 mg tablet 10 mg PO PM 03/14/23 03/14/23 History atorvastatin 20 mg tablet 20 mg PO PM 03/14/23 03/14/23 History doxycycline hyclate 100 mg capsule 100 mg PO BID 03/14/23 03/14/23 History lisinopril 40 mg tablet 40 mg PO PM 03/14/23 03/14/23 History rivaroxaban 20 mg tablet (Xarelto) 20 mg PO PM 03/14/23 03/14/23 History Past Med/Surg History Medical History History of colon polyps Hx of Lyme disease TX JUNE 2021? Hx of gout Prediabetes Hx of basal cell carcinoma Hx of testicular cancer SURGERY>LATER METS TO LIVER/LUNG REQUIRING CHEMO Hx of blood clots 2002>CLOT TO ARM *DURING CHEMO (WAS ON BLOOD THINNERS) Hx of cardiomyopathy History of COVID-02 AUG 2021>SYMPTOMS RESOLVED Sleep apnea MILD>NO DEVICE Interstitial pulmonary fibrosis Peripheral neuropathy Obesity CAD (coronary artery disease) Dyslipidemia Hypertension Surgical History Hx of colonoscopy History of tooth extraction History of cardiac cath NO STENTS (2012) History of bronchoscopy History of orchiectomy, unilateral left Family History Grandfather Myocardial infarction Mother Hypertension Other No family history of adverse response to anesthesia Denies family history of Colon cancer Ovarian cancer Prostate cancer Diabetes Breast cancer Lung cancer Stroke Social History Smoking Status: Never smoker Second Hand Exposure: No; Do You Dip or Chew Tobacco: No; Hx Alcohol Use: Yes Alcohol type: beer Alcohol Intake Frequency: 4 or More x per/Week Alcohol Intake Frequency Comment: 4 -5 drinks/week Hx Substance Use: No Preferred Language: Ukrainian Communication Ability: Effective Visual Impairment: No Limitations Hearing Ability: Normal Marine Tower Operator Required: No Beliefs That Will Affect Care: None marital status: Current Living Situation: Spouse current occupational status: employed 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 How many Children do You have: 1 Feels Safe at Home: Yes Childhood Exposure to Second-Hand Smoke: No Diet: regular caffeine: Yes during the past year weight has: remained stable Dental Care, Regularly: Yes Physical Activity Frequency: 1-2 Times per Week Physical Activity Frequency Comment: walking Seatbelt Use: always Sunscreen Use: Yes Assistive Devices: Glasses Physical Exam Physical Exam: Physical Exam: General: In no acute distress, stated age, well-nourished, good hygiene HEENT: Normocephalic, atraumatic, no scleral icterus, pupils around round, symmetrical, and reactive to light, moist mucus membranes, trachea midline, no thyromegaly Chest/Pulm: No respiratory distress, symmetrical chest expansion, clear breath sounds throughout Cardiac: RRR, no murmurs noted Abdomen: Negative for ascites and bruising, normoactive bowel sounds, soft, non-tender to palpation throughout Musculoskeletal: Symmetrical and without signs of acute trauma, upper and lower extremities with full ROM, no atrophy, spasticity, or flaccidity Extremities: Radial, dorsalis pedis, and posterior tibial pulses are intact and symmetrical, no edema noted in the BL LE's Skin: Right upper thigh with centeal open wound not currently draining with surrounding cellulitis, border currently marked by the ED staff Neuro: Alert and oriented to person, place, month, year, and president, no focal defects, no tremors noted Psych: No acute distress, calm and cooperative during the exam Results & Data Results & Data Vital Signs (Past 12 Hours) Vital Signs Temp Pulse Pulse Resp BP BP Pulse Ox 03/14/23 12:45 81 18 130/96 95 03/14/23 09:30 36.6 C 79 18 133/94 97 O2 Del Method 03/14/23 12:45 Room Air 03/14/23 09:30 Room Air Laboratory Results Abnormal lab results 03/14/23 Range/Units 11:15 Crook # (Auto) 0.92 H (0.11-0.59) K/uL Glucose 186 H (70-99(Fasting)) mg/dl Diagnostic Findings Abdomen/Pelvis CT 03/14/23 11:08 CT SCAN OF THE ABDOMEN AND PELVIS WITH IV CONTRAST CLINICAL HISTORY: Right groin pain. COMPARISON STUDY: No priors. TECHNIQUE: Following the IV administration of 84 cc of Optiray 320, CT scan of the abdomen and pelvis is performed from the lung bases to the proximal femora. Images are reviewed in the axial, sagittal, and coronal planes. IV contrast was administered without complication. A dose lowering technique was utilized adhering to the principles of ALARA. CT DOSE: 1608.56 mGy.cm FINDINGS: Lung bases: The heart is normal in size and without pericardial effusion. There is advanced coronary artery atherosclerosis. There are numerous calcified granulomas. Scarring/atelectasis is noted at both lung bases. No airspace consolidation typical for pneumonia or pleural effusion is identified. Liver: The contrast-enhanced liver is normal in size, contour, and attenuation. There is no intrahepatic biliary ductal dilatation. The hepatic veins and portal veins are patent. Gallbladder: Unremarkable. Spleen: Normal in size and attenuation. Pancreas: Unremarkable. Adrenal glands: Unremarkable. Kidneys: The contrast enhanced kidneys are normal in size and without hydronephrosis. The kidneys enhance symmetrically. Abdominal vasculature: The abdominal aorta is normal in course and caliber Advanced atherosclerotic calcification. Bowel: There is no bowel obstruction. The appendix is well-visualized and normal. Peritoneum: There is no intraperitoneal free air or abdominal ascites. There is a small fat-containing umbilical hernia. Lymphadenopathy: None. Pelvic viscera: The bladder, prostate, and seminal vesicles are normal as visualized. Skeletal structures: No lytic or blastic lesions are seen. Soft tissues: There is stromal thickening and subcutaneous soft tissue induration noted in the right groin. No fluid collection is seen to suggest abscess. IMPRESSION: 1. Findings suggest cellulitis of the right groin. No fluid collection is seen to indicate abscess. Correlate clinically. 2. There is age-advanced atherosclerotic coronary artery calcification. There is also advanced atherosclerotic calcification of the abdominal aorta. 3. Additional findings as above.. ACT 112: Negative or not required by law. Electronically signed by: Tai Wilhelm M.D. 03/14/2023 12:40 PM ECG Additional Comments: Will obtain at the time of the admission Code Status & VTE Plan Code Status Full code VTE Prophylaxis Plan VTE Prophylaxis will be ordered: Yes Supervising Physician Co-Signing Physician Notes Attending addendum: I have physically seen this patient, have supervised the RUFINA's activities, and agree with the H&P unless as otherwise noted. Assessment and Plan: Cellulitis of right groin and leg- Continue to MedSurg Hold doxycycline, which he was on for 3 days in the outpatient setting due to failure of outpatient treatment Continue vancomycin IV and cefepime IV begun in ED Follow wound cultures Follow CBC with differential, BMP and PT/INR Atrial fibrillation/hypertension- Continue amlodipine and lisinopril Continue Xarelto Diabetes mellitus- Holding metformin Placed on Accu-Cheks with SSI BARBIE- CPAP at bedtime PG Care Time/CCT Total # of Minutes Spent Total Time Spent with Patient: Total time spent is greater than 50% in coordination of care (as documented) at patient's floor/unit and/or counseling patient: Coding [place] [address] INT INP/OBS CARE 2/55MIN Patient Type Established Medical Decision Making Moderate Complexity Diagnoses Cellulitis of right leg L03.115 Atrial fibrillation I48.91 Type 2 diabetes mellitus E11.9 Obstructive sleep apnea G47.33 Hypertension I10
[2023-03-14] MEDS ORDERED: DEXTROSE 50% 50 ML SYRINGE IV PRN (14:06)
[2023-03-14] MEDS ORDERED: GLUCOSE 40% GEL 15 GM TUBE PO PRN (14:06)
[2023-03-14] MEDS ORDERED: GLUCOSE 10 TAB/TUBE PO PRN (14:06)
[2023-03-14] MEDS ORDERED: CARBOHYDRATES FOR HYPOGLYCEMIA PO PRN (14:06)
[2023-03-14] MEDS ORDERED: GLUCAGON FOR INJ 1 MG VIAL SQ PRN (14:06)
[2023-03-14] MEDS ORDERED: ACETAMINOPHEN 325 MG TAB PO PRN (14:07)
--- NOTE | 2023-03-14 14:57 | Pharmacy Report ---
Pharmacy PK ABX Note - Date of Service March 14, 2023 - Assessment and Plan Assessment 52 year old M receiving vancomycin and cefepime for treatment of cellulitis of groin. Started on doxycycline 3 days ago with progression. Blood cultures pending, renal function stable. Day #1 of antimicrobial therapy. Plan Vancomycin * Loading dose: 2500 mg IV x 1 * Maintenance dose: 1500 mg IV every 12 hours * Regimen is predicted to achieve target AUC/KAYLAH of 400-600 mg/L.hr * Will obtain a level around steady state if vancomycin continued. Pharmacy will continue to follow and will adjust dose/frequency as necessary. Thank you. Pharmacy has transitioned to AUC monitoring for vancomycin. AUC/KAYLAH is the preferred PK/PD target and is associated with decreased risk of nephrotoxicity compared to traditional trough targets.
--- NOTE | 2023-03-14 16:17 | Electrocardiogram Report ---
Test Reason : Blood Pressure : / mmHG Vent. Rate : 069 BPM Atrial Rate : 069 BPM P-R Int : 192 ms QRS Dur : 096 ms QT Int : 430 ms P-R-T Axes : 019 -46 000 degrees QTc Int : 460 ms Normal sinus rhythm Left axis deviation Inferior infarct (cited on or before 06-NOV-2020) Abnormal ECG When compared with ECG of 23-JUL-2022 09:13, (unconfirmed) No significant change was found Confirmed by Benigno Beard ([id number]) on 03/14/2023 4:17:21 PM Referred By: REFERRED SELF Confirmed By:Fredy Beard
[2023-03-14] MEDS: RIVAROXABAN 20 MG TAB PO SCH (17:31)
[2023-03-14] MEDS: INSULIN ASPART PER UNIT CHARGE SC SCH ×2 (18:50→22:33)
[2023-03-14] MEDS: CEFEPIME 2,000 MG in SYRINGE 0 ML IV SCH (19:51)
[2023-03-14] MEDS: VANCOMYCIN HCL 1,500 MG in SODIUM CHLORIDE 0.9% 500 ML IV SCH (21:34)
[2023-03-14] MEDS: lisinopril 40 MG TAB PO SCH (21:35)
[2023-03-14] MEDS: amLODIPine BESYLATE 5 MG TAB PO SCH (21:36)
[2023-03-14] MEDS: ATORVASTATIN 20 MG TAB PO SCH (21:36)
[2023-03-15] MEDS: CEFEPIME 2,000 MG in SYRINGE 0 ML IV SCH ×3 (03:44→20:52)
[2023-03-15 06:36] LABS: Basophils # (auto) 0.03 K/uL (0.00-0.20); Basophils % (auto) 0.4 %; Eosinophils # (auto) 0.23 K/uL (0.00-0.50); Eosinophils % (auto) 3.4 %; Hematocrit (blood only) 41.8 % (42.0-52.0); Hemoglobin 13.9 g/dl (14.0-18.0); Immature Granulocytes # (auto) 0.02 K/uL (0.01-0.20); Immature Granulocytes % (auto) 0.3 %; Lymphocytes # (auto) 2.05 K/uL (1.20-3.40); Lymphocytes % (auto) 30.4 %; Mean Corpuscular Hemoglobin 28.5 pg (25.0-34.0); Mean Corpuscular Hgb Conc 33.3 g/dL (32.0-36.0); Mean Corpuscular Volume 85.7 fL (80.0-100.0); Mean Platelet Volume 11.3 fL (9.4-12.4); Monocytes # (auto) 0.98 K/uL (0.11-0.59); Monocytes % (auto) 14.5 %; Neutrophils # (auto) 3.43 K/uL (1.40-6.50); Platelet Count 244 K/uL (130-400); RDW Coefficient of Variation 13.2 % (11.5-14.5); RDW Standard Deviation 40.8 fL (36.4-46.3); Red Blood Count 4.88 M/uL (4.70-6.10); White Blood Count 6.74 K/ul (4.8-10.8)
[2023-03-15 06:53] LABS: BUN Creatinine Ratio 10.1 (10-20); Est GFR (African American) 115.6 ml/min; Est GFR (Non-African American) 99.7 ml/min; Potassium 3.8 mmol/L (3.5-5.1)
[2023-03-15 07:16] LABS: INR 1.1 (0.9-1.1); Prothrombin Time 12.2 Seconds (9.0-12.0)
[2023-03-15] MEDS: INSULIN ASPART PER UNIT CHARGE SC SCH ×4 (08:38→20:50)
[2023-03-15] MEDS: VANCOMYCIN HCL 1,500 MG in SODIUM CHLORIDE 0.9% 500 ML IV SCH ×2 (08:39→20:52)
--- NOTE | 2023-03-15 09:16 | Hospitalist Progress Note ---
Date of Service March 15, 2023 Assessment & Plan (1) Cellulitis of right leg: Plan: Admitted with worsening cellulitis despite outpatient abx w/ Doxycycline x 3 days this past week. Prior possible bug bite w/ reported purulent drainage (no active for cx at present, was attempted by ER staff) CTAP findings suggest cellulitis of the right groin. No fluid collection is seen to indicate abscess. Correlate clinically. Continues on Cefepime, Vancomycin for coverage MRSA/pseudomonas. MRSA nares positive (however declines any known hx MRSA) WBC wnl, afebrile Blood cultures pending (noting were drawn after abx) Erythema improved, within markings -- monitor Continues on Xarelto for DVT prophylaxis Monitor labs/exam on repeat Discussed continued inpatient stay on IV abx and will plan to transition to PO if blood cultures NGTD x 48 hours (tomorrow evening). Possible monitor on switch to PO abx overnight tomorrow vs dc and return if any worsenign (2) Atrial fibrillation: Plan: Currently in NSR on exam (reported rate controlled afib on admission) Remains on coreg, xarelto K 3.8, will add mag to AM labs/monitor in AM. Ideally K~4/Mag ~2 Monitor labs in AM (3) Type 2 diabetes mellitus: Plan: A1c 8.3 in November, no need for repeat. Continue DM diet Holding home metformin while inpatient and checking BSG AC/HS with sliding scale. BSGs under good control Of note, only on metformin 1000mg BID at baseline. Will need to inquire about compliance, however rec f/u PCP for additional agents for better control. (4) Obstructive sleep apnea: Plan: HS CPAP ordered (5) Hypertension: Plan: Chronic, stable Continue amlodipine and lisinopril , carvedilol as above for afib BP 122/72 and will monitor Plan continued inpatient stay on IV antibiotics. possible switch to PO abx after BCx NGTD x 48 hours and possible dc tomorrow evening vs Friday morning. Admission and Anticipated Discharge Date Admission Date: March 14, 2023 Supervising Physician Co-Signing Physician Notes The patient was not seen by me. The chart was reviewed. Case discussed with ATUL Isidro. Agree with assessment and plan Subjective Eval this afternoon, doing well. Redness within markings, not having much in the way of pain. Discussed continued IV antibiotics but if blood cultures negative x 48 hours can transition to PO at discharge to complete course. Discussed monitoring response with switch to PO vs dc pending look on exam given he did complete 3 days of Doxycycline prior to admission. No known history of MRSA. No chest pain, shortness of breath, abdominal pain, or nausea/vomiting. Questions/concerns addressed at this time. Does have hx lyme in the past. Physical Exam Physical Exam: General: WD/WN male sitting up in bed, at bedside, NAD, watching [employer] game Head normocephalic, atraumatic, mmm, trachea midline, +facial hair Resp: even/unlabored, no w/c/r, on room air CV: RRR, no significant m/r/g, no pitting edema/calf tenderness GI: +BS, soft/NT ; no cole MSK/Neuro/skin: nonfocal, strength equal R groin w/ erythema within markings, central open wound without active drainage/decreased surrounding cellulitis, no significant tenderness Psych: AOx3, cooperative and pleasant with exam Results & Data Results & Data Vital Signs (Past 12 Hours) Vital Signs Temp Pulse Pulse Resp BP Pulse Ox O2 Del Method 03/15/23 07:09 36.7 C 69 16 122/72 97 Room Air 03/14/23 23:00 36.8 C 73 16 141/85 H 94 Room Air 03/14/23 22:30 83 16 96 Room Air Laboratory Results 03/15/23 03/15/23 03/14/23 Range/Units 07:31 05:49 21:43 WBC 6.74 (4.8-10.8) K/ul RBC 4.88 (4.70-6.10) M/uL Hgb 13.9 L (14.0-18.0) g/dl Hct 41.8 L (42.0-52.0) % MCV 85.7 (80.0-100.0) fL MCH 28.5 (25.0-34.0) pg MCHC 33.3 (32.0-36.0) g/dL RDW Std Deviation 40.8 (36.4-46.3) fL RDW Coeff of Harris 13.2 (11.5-14.5) % Plt Count 244 (130-400) K/uL MPV 11.3 (9.4-12.4) fL Immature Gran % (Auto) 0.3 % Neut % (Auto) 51.0 % Lymph % (Auto) 30.4 % [place] % (Auto) 14.5 % Eos % (Auto) 3.4 % Baso % (Auto) 0.4 % Neut # (Auto) 3.43 (1.40-6.50) K/uL Lymph # (Auto) 2.05 (1.20-3.40) K/uL [place] # (Auto) 0.98 H (0.11-0.59) K/uL Eos # (Auto) 0.23 (0.00-0.50) K/uL Baso # (Auto) 0.03 (0.00-0.20) K/uL Immature Gran # (Auto) 0.02 (0.01-0.20) K/uL PT 12.2 H (9.0-12.0) Seconds INR 1.1 (0.9-1.1) Sodium 140 (136-145) mmol/L Potassium 3.8 (3.5-5.1) mmol/L Chloride 105 (98-107) mmol/L Carbon Dioxide 26 (21-32) mmol/L Anion Gap 9 (3-11) BUN 9 (6-23) mg/dl Creatinine 0.89 (0.6-1.4) mg/dl Est Cr Clr Drug Dosing 145.0 ml/min Est GFR ( Amer) 115.6 ml/min Est GFR (Non-Af Amer) 99.7 ml/min BUN/Creatinine Ratio 10.1 (10-20) Glucose 145 H (70-99(Fasting)) mg/dl POC Glucose 144 H 168 H (70-99) mg/dl Calcium 9.0 (8.6-10.3) mg/dl Total Bilirubin (0.2-1.0) mg/dl AST (13-39) U/L ALT (7-52) U/L Alkaline Phosphatase (34-104) U/L Total Protein (6.0-8.3) gm/dl Albumin (3.4-5.0) gm/dl Globulin (2.5-4.0) gm/dl Albumin/Globulin Ratio (0.9-2) Nasal Screen MRSA (PCR) (Negative) 03/14/23 03/14/2303/14/23 Range/Units 17:28 14:34 11:15 WBC 8.78 (4.8-10.8) K/ul RBC 5.06 (4.70-6.10) M/uL Hgb 14.7 (14.0-18.0) g/dl Hct 43.2 (42.0-52.0) % MCV 85.4 (80.0-100.0) fL MCH 29.1 (25.0-34.0) pg MCHC 34.0 (32.0-36.0) g/dL RDW Std Deviation 40.8 (36.4-46.3) fL RDW Coeff of Harris 13.2 (11.5-14.5) % Plt Count 262 (130-400) K/uL MPV 11.2 (9.4-12.4) fL Immature Gran % (Auto) 0.5 % Neut % (Auto) 59.2 % Lymph % (Auto) 26.4 % [place] % (Auto) 10.5 % Eos % (Auto) 3.1 % Baso % (Auto) 0.3 % Neut # (Auto) 5.20 (1.40-6.50) K/uL Lymph # (Auto) 2.32 (1.20-3.40) K/uL [place] # (Auto) 0.92 H (0.11-0.59) K/uL Eos # (Auto) 0.27 (0.00-0.50) K/uL Baso # (Auto) 0.03 (0.00-0.20) K/uL Immature Gran # (Auto) 0.04 (0.01-0.20) K/uL PT (9.0-12.0) Seconds INR (0.9-1.1) Sodium 136 (136-145) mmol/L Potassium 4.1 (3.5-5.1) mmol/L Chloride 102 (98-107) mmol/L Carbon Dioxide 26 (21-32) mmol/L Anion Gap 8 (3-11) BUN 13 (6-23) mg/dl Creatinine 0.94 (0.6-1.4) mg/dl Est Cr Clr Drug Dosing 137.1 ml/min Est GFR ( Amer) 109.1 ml/min Est GFR (Non-Af Amer) 94.2 ml/min BUN/Creatinine Ratio 13.8 (10-20) Glucose 186 H (70-99(Fasting)) mg/dl POC Glucose 158 H (70-99) mg/dl Calcium 9.3 (8.6-10.3) mg/dl Total Bilirubin 0.9 (0.2-1.0) mg/dl AST 17 (13-39) U/L ALT 27 (7-52) U/L Alkaline Phosphatase 100 (34-104) U/L Total Protein 7.6 (6.0-8.3) gm/dl Albumin 4.3 (3.4-5.0) gm/dl Globulin 3.3 (2.5-4.0) gm/dl Albumin/Globulin Ratio 1.3 (0.9-2) Nasal Screen MRSA (PCR) Positive A (Negative) Diagnostic Findings Abdomen/Pelvis CT 03/14/23 11:08 CT SCAN OF THE ABDOMEN AND PELVIS WITH IV CONTRAST CLINICAL HISTORY: Right groin pain. COMPARISON STUDY: No priors. TECHNIQUE: Following the IV administration of 84 cc of Optiray 320, CT scan of the abdomen and pelvis is performed from the lung bases to the proximal femora. Images are reviewed in the axial, sagittal, and coronal planes. IV contrast was administered without complication. A dose lowering technique was utilized adhering to the principles of ALARA. CT DOSE: 1608.56 mGy.cm FINDINGS: Lung bases: The heart is normal in size and without pericardial effusion. There is advanced coronary artery atherosclerosis. There are numerous calcified granulomas. Scarring/atelectasis is noted at both lung bases. No airspace consolidation typical for pneumonia or pleural effusion is identified. Liver: The contrast-enhanced liver is normal in size, contour, and attenuation. There is no intrahepatic biliary ductal dilatation. The hepatic veins and portal veins are patent. Gallbladder: Unremarkable. Spleen: Normal in size and attenuation. Pancreas: Unremarkable. Adrenal glands: Unremarkable. Kidneys: The contrast enhanced kidneys are normal in size and without hydronephrosis. The kidneys enhance symmetrically. Abdominal vasculature: The abdominal aorta is normal in course and caliber Advanced atherosclerotic calcification. Bowel: There is no bowel obstruction. The appendix is well-visualized and normal. Peritoneum: There is no intraperitoneal free air or abdominal ascites. There is a small fat-containing umbilical hernia. Lymphadenopathy: None. Pelvic viscera: The bladder, prostate, and seminal vesicles are normal as visualized. Skeletal structures: No lytic or blastic lesions are seen. Soft tissues: There is stromal thickening and subcutaneous soft tissue induration noted in the right groin. No fluid collection is seen to suggest abscess. IMPRESSION: 1. Findings suggest cellulitis of the right groin. No fluid collection is seen to indicate abscess. Correlate clinically. 2. There is age-advanced atherosclerotic coronary artery calcification. There is also advanced atherosclerotic calcification of the abdominal aorta. 3. Additional findings as above.. ACT 112: Negative or not required by law. Electronically signed by: Tai Wilhelm M.D. 03/14/2023 12:40 PM PG Care Time/CCT Total # of Minutes Spent Total Time Spent with Patient: Total time spent is greater than 50% in coordination of care (as documented) at patient's floor/unit and/or counseling patient: Coding Level of Care Code 37844 SUB INP/OBS CARE 3/50MIN Diagnoses Cellulitis of right leg L03.115 Atrial fibrillation I48.91 Type 2 diabetes mellitus E11.9 Obstructive sleep apnea G47.33 Hypertension I10
[2023-03-15 14:28] LABS: Lyme Ab IgG w/WB Rflx Negative (Negative)
[2023-03-15 14:39] LABS: Lyme Ab IgM w/WB Rflx Equivocal (Negative)
[2023-03-15 15:09] LABS: Magnesium 1.6 mg/dl (1.7-2.4)
[2023-03-15] MEDS: RIVAROXABAN 20 MG TAB PO SCH (17:01)
[2023-03-15] MEDS: carvediloL 25 MG TAB PO SCH (17:01)
[2023-03-15] MEDS: amLODIPine BESYLATE 5 MG TAB PO SCH (20:52)
[2023-03-15] MEDS: ATORVASTATIN 20 MG TAB PO SCH (20:53)
[2023-03-15] MEDS: lisinopril 40 MG TAB PO SCH (20:53)
[2023-03-16] MEDS: CEFEPIME 2,000 MG in SYRINGE 0 ML IV SCH ×2 (03:41→11:41)
[2023-03-16 06:28] LABS: Basophils # (auto) 0.02 K/uL (0.00-0.20); Basophils % (auto) 0.3 %; Eosinophils # (auto) 0.23 K/uL (0.00-0.50); Eosinophils % (auto) 3.6 %; Hematocrit (blood only) 42.2 % (42.0-52.0); Immature Granulocytes # (auto) 0.02 K/uL (0.01-0.20); Immature Granulocytes % (auto) 0.3 %; Lymphocytes # (auto) 2.48 K/uL (1.20-3.40); Lymphocytes % (auto) 38.9 %; Mean Corpuscular Hemoglobin 28.5 pg (25.0-34.0); Mean Corpuscular Hgb Conc 33.2 g/dL (32.0-36.0); Mean Corpuscular Volume 85.9 fL (80.0-100.0); Mean Platelet Volume 11.2 fL (9.4-12.4); Monocytes # (auto) 0.96 K/uL (0.11-0.59); Neutrophils # (auto) 2.67 K/uL (1.40-6.50); Neutrophils % (auto) 41.9 %; Platelet Count 227 K/uL (130-400); RDW Coefficient of Variation 13.1 % (11.5-14.5); RDW Standard Deviation 40.5 fL (36.4-46.3); Red Blood Count 4.91 M/uL (4.70-6.10); White Blood Count 6.38 K/ul (4.8-10.8)
[2023-03-16 06:54] LABS: Albumin Globulin Ratio 1.3 (0.9-2); Albumin Level 3.7 gm/dl (3.4-5.0); BUN Creatinine Ratio 9.8 (10-20); Bilirubin,Total 0.7 mg/dl (0.2-1.0); Calcium 8.8 mg/dl (8.6-10.3); Creatinine Clr Calc Pharmacy 157.4 ml/min; Est GFR (African American) 119.5 ml/min; Est GFR (Non-African American) 103.1 ml/min; Globulin 2.9 gm/dl (2.5-4.0); Magnesium 1.7 mg/dl (1.7-2.4); Potassium 3.7 mmol/L (3.5-5.1); Total Protein 6.6 gm/dl (6.0-8.3)
[2023-03-16] MEDS ORDERED: VANCOMYCIN LEVEL ONE (08:00)
--- NOTE | 2023-03-16 08:00 | Hospitalist Progress Note ---
Date of Service March 16, 2023 Assessment & Plan (1) Cellulitis of right leg: Plan: Admitted with worsening cellulitis despite outpatient abx w/ Doxycycline x 3 days this past week. Prior possible bug bite w/ reported purulent drainage (no active for cx at present, was attempted by ER staff) CTAP findings suggest cellulitis of the right groin. No fluid collection is seen to indicate abscess. Correlate clinically. Continues on Cefepime, Vancomycin for coverage MRSA/pseudomonas. MRSA nares positive (however declines any known hx MRSA) WBC wnl, afebrile Blood cultures pending (noting were drawn after abx) Erythema improved, within markings -- monitor Continues on Xarelto for DVT prophylaxis Monitor labs/exam on repeat Discussed continued inpatient stay on IV abx and will plan to transition to PO if blood cultures NGTD x 48 hours (tomorrow evening). Possible monitor on switch to PO abx overnight tomorrow vs dc and return if any worsenign (2) Atrial fibrillation: Plan: Currently in NSR on exam (reported rate controlled afib on admission) Remains on coreg, xarelto K 3.8, will add mag to AM labs/monitor in AM. Ideally K~4/Mag ~2 Monitor labs in AM (3) Type 2 diabetes mellitus: Plan: A1c 8.3 in November, no need for repeat. Continue DM diet Holding home metformin while inpatient and checking BSG AC/HS with sliding scale. BSGs under good control Of note, only on metformin 1000mg BID at baseline. Will need to inquire about compliance, however rec f/u PCP for additional agents for better control. (4) Obstructive sleep apnea: Plan: HS CPAP ordered (5) Hypertension: Plan: Chronic, stable Continue amlodipine and lisinopril , carvedilol as above for afib BP 122/72 and will monitor Plan continued inpatient stay on IV antibiotics. possible switch to PO abx after BCx NGTD x 48 hours and possible dc tomorrow evening vs Friday morning. Admission and Anticipated Discharge Date Admission Date: March 14, 2023 Results & Data Results & Data Vital Signs (Past 12 Hours) Vital Signs Temp Pulse Resp BP Pulse Ox O2 Del Method 03/15/23 20:31 36.5 C 73 20 128/88 95 Room Air Laboratory Results 12/31/23 12/31/23 12/30/23 Range/Units 06:04 06:03 20:44 WBC 6.38 (4.8-10.8) K/ul RBC 4.91 (4.70-6.10) M/uL Hgb 14.0 (14.0-18.0) g/dl Hct 42.2 (42.0-52.0) % MCV 85.9 (80.0-100.0) fL MCH 28.5 (25.0-34.0) pg MCHC 33.2 (32.0-36.0) g/dL RDW Std Deviation 40.5 (36.4-46.3) fL RDW Coeff of Harris 13.1 (11.5-14.5) % Plt Count 227 (130-400) K/uL MPV 11.2 (9.4-12.4) fL Immature Gran % (Auto) 0.3 % Neut % (Auto) 41.9 % Lymph % (Auto) 38.9 % [place] % (Auto) 15.0 % Eos % (Auto) 3.6 % Baso % (Auto) 0.3 % Neut # (Auto) 2.67 (1.40-6.50) K/uL Lymph # (Auto) 2.48 (1.20-3.40) K/uL [place] # (Auto) 0.96 H (0.11-0.59) K/uL Eos # (Auto) 0.23 (0.00-0.50) K/uL Baso # (Auto) 0.02 (0.00-0.20) K/uL Immature Gran # (Auto) 0.02 (0.01-0.20) K/uL Sodium 139 (136-145) mmol/L Potassium 3.7 (3.5-5.1) mmol/L Chloride 107 (98-107) mmol/L Carbon Dioxide 25 (21-32) mmol/L Anion Gap 7 (3-11) BUN 8 (6-23) mg/dl Creatinine 0.82 (0.6-1.4) mg/dl Est Cr Clr Drug Dosing 157.4 ml/min Est GFR ( Amer) 119.5 ml/min Est GFR (Non-Af Amer) 103.1 ml/min BUN/Creatinine Ratio 9.8 L (10-20) Glucose 155 H (70-99(Fasting)) mg/dl POC Glucose 240 H (70-99) mg/dl Calcium 8.8 (8.6-10.3) mg/dl Magnesium 1.7 (1.7-2.4) mg/dl Total Bilirubin 0.7 (0.2-1.0) mg/dl AST 13 (13-39) U/L ALT 23 (7-52) U/L Alkaline Phosphatase 89 (34-104) U/L Total Protein 6.6 (6.0-8.3) gm/dl Albumin 3.7 (3.4-5.0) gm/dl Globulin 2.9 (2.5-4.0) gm/dl Albumin/Globulin Ratio 1.3 (0.9-2) Triglycerides 144 (0-150) mg/dl Cholesterol 114 (0-200) mg/dl LDL Cholesterol, Calc 47 mg/dl VLDL Cholesterol, Calc 29 (0-30) mg/dl HDL Cholesterol 38 mg/dl Cholesterol/HDL Ratio 3.0 (0-5) Vitamin B12 204 (180-914) pg/ml Random Vancomycin 12.5 (10-20) mcg/ml Lyme Disease IgG Ab (Negative) Lyme IgG (Western Blot) Lyme IgG 18 kDa Band Lyme IgG 23 kDa Band Lyme IgG 28 kDa Band Lyme IgG 30 kDa Band Lyme IgG 39 kDa Band Lyme IgG 41 kDa Band Lyme IgG 45 kDa Band Lyme IgG 58 kDa Band Lyme IgG 66 kDa Band Lyme IgG 93 kDa Band Lyme IgM Ab (WB) Lyme Disease IgM Ab (Negative) Lyme IgM 23 kDa Band Lyme IgM 39 kDa Band Lyme IgM 41 kDa Band 03/15/23 03/15/23 03/15/23 Range/Units 16:25 13:21 12:04 WBC (4.8-10.8) K/ul RBC (4.70-6.10) M/uL Hgb (14.0-18.0) g/dl Hct (42.0-52.0) % MCV (80.0-100.0) fL MCH (25.0-34.0) pg MCHC (32.0-36.0) g/dL RDW Std Deviation (36.4-46.3) fL RDW Coeff of Harris (11.5-14.5) % Plt Count (130-400) K/uL MPV (9.4-12.4) fL Immature Gran % (Auto) % Neut % (Auto) % Lymph % (Auto) % [place] % (Auto) % Eos % (Auto) % Baso % (Auto) % Neut # (Auto) (1.40-6.50) K/uL Lymph # (Auto) (1.20-3.40) K/uL [place] # (Auto) (0.11-0.59) K/uL Eos # (Auto) (0.00-0.50) K/uL Baso # (Auto) (0.00-0.20) K/uL Immature Gran # (Auto) (0.01-0.20) K/uL Sodium (136-145) mmol/L Potassium (3.5-5.1) mmol/L Chloride (98-107) mmol/L Carbon Dioxide (21-32) mmol/L Anion Gap (3-11) BUN (6-23) mg/dl Creatinine (0.6-1.4) mg/dl Est Cr Clr Drug Dosing ml/min Est GFR ( Amer) ml/min Est GFR (Non-Af Amer) ml/min BUN/Creatinine Ratio (10-20) Glucose (70-99(Fasting)) mg/dl POC Glucose 146 H 164 H (70-99) mg/dl Calcium (8.6-10.3) mg/dl Magnesium (1.7-2.4) mg/dl Total Bilirubin (0.2-1.0) mg/dl AST (13-39) U/L ALT (7-52) U/L Alkaline Phosphatase (34-104) U/L Total Protein (6.0-8.3) gm/dl Albumin (3.4-5.0) gm/dl Globulin (2.5-4.0) gm/dl Albumin/Globulin Ratio (0.9-2) Triglycerides (0-150) mg/dl Cholesterol (0-200) mg/dl LDL Cholesterol, Calc mg/dl VLDL Cholesterol, Calc (0-30) mg/dl HDL Cholesterol mg/dl Cholesterol/HDL Ratio (0-5) Vitamin B12 (180-914) pg/ml Random Vancomycin (10-20) mcg/ml Lyme Disease IgG Ab Negative (Negative) Lyme IgG (Western Blot) Pending Lyme IgG 18 kDa Band Pending Lyme IgG 23 kDa Band Pending Lyme IgG 28 kDa Band Pending Lyme IgG 30 kDa Band Pending Lyme IgG 39 kDa Band Pending Lyme IgG 41 kDa Band Pending Lyme IgG 45 kDa Band Pending Lyme IgG 58 kDa Band Pending Lyme IgG 66 kDa Band Pending Lyme IgG 93 kDa Band Pending Lyme IgM Ab (WB) Pending Lyme Disease IgM Ab Equivocal A (Negative) Lyme IgM 23 kDa Band Pending Lyme IgM 39 kDa Band Pending Lyme IgM 41 kDa Band Pending 03/15/23 Range/Units 05:49 WBC (4.8-10.8) K/ul RBC (4.70-6.10) M/uL Hgb (14.0-18.0) g/dl Hct (42.0-52.0) % MCV (80.0-100.0) fL MCH (25.0-34.0) pg MCHC (32.0-36.0) g/dL RDW Std Deviation (36.4-46.3) fL RDW Coeff of Harris (11.5-14.5) % Plt Count (130-400) K/uL MPV (9.4-12.4) fL Immature Gran % (Auto) % Neut % (Auto) % Lymph % (Auto) % [place] % (Auto) % Eos % (Auto) % Baso % (Auto) % Neut # (Auto) (1.40-6.50) K/uL Lymph # (Auto) (1.20-3.40) K/uL [place] # (Auto) (0.11-0.59) K/uL Eos # (Auto) (0.00-0.50) K/uL Baso # (Auto) (0.00-0.20) K/uL Immature Gran # (Auto) (0.01-0.20) K/uL Sodium (136-145) mmol/L Potassium (3.5-5.1) mmol/L Chloride (98-107) mmol/L Carbon Dioxide (21-32) mmol/L Anion Gap (3-11) BUN (6-23) mg/dl Creatinine (0.6-1.4) mg/dl Est Cr Clr Drug Dosing ml/min Est GFR ( Amer) ml/min Est GFR (Non-Af Amer) ml/min BUN/Creatinine Ratio (10-20) Glucose (70-99(Fasting)) mg/dl POC Glucose (70-99) mg/dl Calcium (8.6-10.3) mg/dl Magnesium 1.6 L (1.7-2.4) mg/dl Total Bilirubin (0.2-1.0) mg/dl AST (13-39) U/L ALT (7-52) U/L Alkaline Phosphatase (34-104) U/L Total Protein (6.0-8.3) gm/dl Albumin (3.4-5.0) gm/dl Globulin (2.5-4.0) gm/dl Albumin/Globulin Ratio (0.9-2) Triglycerides (0-150) mg/dl Cholesterol (0-200) mg/dl LDL Cholesterol, Calc mg/dl VLDL Cholesterol, Calc (0-30) mg/dl HDL Cholesterol mg/dl Cholesterol/HDL Ratio (0-5) Vitamin B12 (180-914) pg/ml Random Vancomycin (10-20) mcg/ml Lyme Disease IgG Ab (Negative) Lyme IgG (Western Blot) Lyme IgG 18 kDa Band Lyme IgG 23 kDa Band Lyme IgG 28 kDa Band Lyme IgG 30 kDa Band Lyme IgG 39 kDa Band Lyme IgG 41 kDa Band Lyme IgG 45 kDa Band Lyme IgG 58 kDa Band Lyme IgG 66 kDa Band Lyme IgG 93 kDa Band Lyme IgM Ab (WB) Lyme Disease IgM Ab (Negative) Lyme IgM 23 kDa Band Lyme IgM 39 kDa Band Lyme IgM 41 kDa Band PG Care Time/CCT Total # of Minutes Spent Total Time Spent with Patient: Total time spent is greater than 50% in coordination of care (as documented) at patient's floor/unit and/or counseling patient: Coding Diagnoses Cellulitis of right leg L03.115 Atrial fibrillation I48.91 Type 2 diabetes mellitus E11.9 Obstructive sleep apnea G47.33 Hypertension I10
[2023-03-16] MEDS: INSULIN ASPART PER UNIT CHARGE SC SCH ×2 (08:43→12:27)
[2023-03-16] MEDS: VANCOMYCIN HCL 1,500 MG in SODIUM CHLORIDE 0.9% 500 ML IV SCH (08:44)
[2023-03-16] MEDS: carvediloL 25 MG TAB PO SCH (08:44)
--- NOTE | 2023-03-16 10:00 | Discharge Summary ---
Date of Service March 16, 2023 Admission HPI Per Admitting Provider Andrea is a 52 year old male with a PMG significant for afib on Xarelto, DMiI, ischemic cardiomyopathy, nonobstructive coronary disease, HTN and obstructive sleep apnea who was sent to the [facility] ED on 03/14 from [facility] due to concerns for right groin abscess. He remained stable in the ED. Labs including CBC and CMP were unremarkable. CT of the abd/pelvis w/IV con was read as "1. Findings suggest cellulitis of the right groin. No fluid collection is seen to indicate abscess. Correlate clinically. 2. There is age-advanced atherosclerotic coronary artery calcification. There is also advanced atherosclerotic c alcification of the abdominal aorta. 3. Additional findings as above..". Prior to admission the patient was given a dose of Cefepime and Vancomycin. We were asked to admit the patient for progression of his known cellulitis. At the time of the exam the patient was sitting in bed in no acute distress with his sitting bedside. He states that he initially noticed a bug bite on his right thigh approximately 2 weeks ago. It was itching him so he was picking at it and it eventually opened up. Since then he has had progressive erythema and swelling. He was seen on a tele health call 3 days ago and started on PO doxycycline. While on Doxcy the area continued to spread and drrain pus. He denies recent fevers or chills, chest pain, SOB, abd pain, nausea, vomiting, diarrhea, dysuria, hematuria, melena, and recent trauma. He is a full code and his would make medical decisions for him if he cannot make them himself. Please refer to Dr. Bond's attestation for any changes to the treatment plan Admission Exam Per Admitting Provider Physical Exam: General: In no acute distress, stated age, well-nourished, good hygiene HEENT: Normocephalic, atraumatic, no scleral icterus, pupils around round, symmetrical, and reactive to light, moist mucus membranes, trachea midline, no thyromegaly Chest/Pulm: No respiratory distress, symmetrical chest expansion, clear breath sounds throughout Cardiac: RRR, no murmurs noted Abdomen: Negative for ascites and bruising, normoactive bowel sounds, soft, non- tender to palpation throughout Musculoskeletal: Symmetrical and without signs of acute trauma, upper and lower extremities with full ROM, no atrophy, spasticity, or flaccidity Extremities: Radial, dorsalis pedis, and posterior tibial pulses are intact and symmetrical, no edema noted in the BL LE's Skin: Right upper thigh with centeal open wound not currently draining with surrounding cellulitis, border currently marked by the ED staff Neuro: Alert and oriented to person, place, month, year, and president, no focal defects, no tremors noted Psych: No acute distress, calm and cooperative during the exam Principal Diagnosis R Groin Cellulitis Discharge Exam General: WD/WN male sitting up in bed, at bedside, NAD, watching [employer] game Head normocephalic, atraumatic, mmm, trachea midline, +facial hair Resp: even/unlabored, no w/c/r, on room air CV: RRR, no significant m/r/g, no pitting edema/calf tenderness GI: +BS, soft/NT ; no cole MSK/Neuro/skin: nonfocal, strength equal R groin w/ erythema within markings, central open wound without active drainage/decreased surrounding cellulitis however appears to have pustulous head, no significant tenderness Psych: AOx3, cooperative and pleasant with exam Discharge Data Allergies Allergy/AdvReac Type Severity Reaction Status Date / Time No Known Allergies Allergy Unknown Verified 03/14/23 13:40 Consultations 03/14/23 16:24 ED Decision to Admit Stat Ordered Studies Abdomen/Pelvis CT 03/14/23 11:08 CT SCAN OF THE ABDOMEN AND PELVIS WITH IV CONTRAST CLINICAL HISTORY: Right groin pain. COMPARISON STUDY: No priors. TECHNIQUE: Following the IV administration of 84 cc of Optiray 320, CT scan of the abdomen and pelvis is performed from the lung bases to the proximal femora. Images are reviewed in the axial, sagittal, and coronal planes. IV contrast was administered without complication. A dose lowering technique was utilized adhering to the principles of ALARA. CT DOSE: 1608.56 mGy.cm FINDINGS: Lung bases: The heart is normal in size and without pericardial effusion. There is advanced coronary artery atherosclerosis. There are numerous calcified granulomas. Scarring/atelectasis is noted at both lung bases. No airspace c onsolidation typical for pneumonia or pleural effusion is identified. Liver: The contrast-enhanced liver is normal in size, contour, and attenuation. There is no intrahepatic biliary ductal dilatation. The hepatic veins and portal veins are patent. Gallbladder: Unremarkable. Spleen: Normal in size and attenuation. Pancreas: Unremarkable. Adrenal glands: Unremarkable. Kidneys: The contrast enhanced kidneys are normal in size and without hydronephrosis. The kidneys enhance symmetrically. Abdominal vasculature: The abdominal aorta is normal in course and caliber Advanced atherosclerotic calcification. Bowel: There is no bowel obstruction. The appendix is well-visualized and normal. Peritoneum: There is no intraperitoneal free air or abdominal ascites. There is a small fat-containing umbilical hernia. Lymphadenopathy: None. Pelvic viscera: The bladder, prostate, and seminal vesicles are normal as visualized. Skeletal structures: No lytic or blastic lesions are seen. Soft tissues: There is stromal thickening and subcutaneous soft tissue induration noted in the right groin. No fluid collection is seen to suggest abscess. IMPRESSION: 1. Findings suggest cellulitis of the right groin. No fluid collection is seen to indicate abscess. Correlate clinically. 2. There is age-advanced atherosclerotic coronary artery calcification. There is also advanced atherosclerotic calcification of the abdominal aorta. 3. Additional findings as above.. ACT 112: Negative or not required by law. Electronically signed by: Tai Wilhelm M.D. 03/14/2023 12:40 PM Hospital Course (1) Cellulitis of right leg: Admitted with worsening cellulitis despite outpatient abx w/ Doxycycline x 3 days this past week. Prior possible bug bite w/ reported purulent drainage (no active for cx at present, was attempted by ER staff) CTAP findings suggest cellulitis of the right groin. No fluid collection is seen to indicate abscess. Placed on Cefepime/Vancomycin for MRSA/pseudomonal coverage. MRSA nares positive however declined any prior known hx MRSA Blood cultures NGTD, continued IV abx x 48 hours and plans for dc on Bactrim to complete 7 day coure Erythema much improved in markings, did have almost active head prior to dc. instructions not to pop/can drain spontaneously if occurs. WBC wnl, afebrile Continued on Xarelto for DVT proph while inpatient (on for hx afib) Of note, hx Lyme, however given bite was obtained Lyme testing prior to knowing history and was positive IgM but negative IgG interestingly. ?if bite then infection turned into cellulitic infection --> discussed w/ supervising provider and complete prior doxy course w/ additional 7 days sent. F/u PCP and western blot testing at discharge Discussed to return if any worsening redness/fevers/pain/etc (2) Atrial fibrillation: NSR on exam (reported rate controlled afib on admission) Remained on coreg, xarelto. Mag checked and 1gm IV given. Repeat wnl (3) Type 2 diabetes mellitus: A1c 8.3 in November, no need for repeat. Continue DM diet Held home metformin while inpatient and utilized SSI while inpatient w/ good control On metformin 1000mg BID at baseline and rec f/u with PCP about better control at baseline Of note, checked B12 while on metformin and was low normal 204 and rx for B12 supplementation at dc sent. F/u PCP (4) Obstructive sleep apnea: HS CPAP ordered (5) Hypertension: Chronic and remained on amlodipine, lisinopril, carvedilol Plan discharged home on Bactrim PO abx (also completing doxy for lyme testing and to f/u PCP WB testing) BCx remained NGTD and patient afebrile w/ improvement in appearance on exam. To return if any worsening. Total Time Total Time Spent Total Time Spent (In Minutes): 45 Discharge Plan Discharge Items Patient Disposition: Home - Self-Care Reason For Visit: WORSENING RLE CELLULITIS Discharge Diagnosis: Cellulitis Condition on Discharge: Fair Goals: You have been hospitalized for an acute medical problem. During your stay at [facility], we have made an effort to correct the problem that brought you to the hospital while keeping you as comfortable as possible. Medications were used to bring your condition under control and your discharge instructions will include directions for any medications you should take after leaving the hospital. Please make sure you see your Primary Care Provider as part of your follow up plan. Activity: As commented below Non-emergency contact: Primary Care Provider Call non-emergency contact if: you have any medication questions, your symptoms worsen, your pain is worsening and you have a fever Follow-up/Referrals: Germán Ford DO [Primary Care Provider] - 03/25/23 9:20 am (APPOINTMENT WITH GRACIEL[facility] VAZQUE[facility]) Diet: Heart Healthy Addtl Attending Provider Instructions: You have been hospitalized for cellulitis despite outpatient antibiotics. Imaging was negative for any abscess and you were treated with IV antibiotics. Your cultures have been negative and the redness has improved. Decision was made to send you home on a course of Bactrim which should be taken TWICE daily for another 7 days and we did test for Lyme and despite prior infection, the acute testing on screening was negative and you are to complete 14 days of Doxycycline. You have been provided an additional week of antibiotics with Doxycycline and you can follow up with primary testing when Western Blot testing back. Please follow up with primary care in the next 7-10 days to monitor your status. Please return to the ER with any fever/chills, increased redness or swelling, or for any symptoms concerning for you. It has been a pleasure being a part of the medical team providing for you while you have been in the hospital. Take care. Pending Studies at Discharge: Yes Studies:: Western Blot Lyme Blood cultures -- negative to date Stand-Alone Forms: My [facility] [employer], Smoking Cessation Medications and DC Order Prescriptions: New sulfamethoxazole-trimethoprim 800-160 mg tablet 1 tab PO BID 7 Days Qty: 14 0RF cyanocobalamin (vitamin B-12) 1,000 mcg capsule 1,000 mcg PO DAILY Qty: 30 0RF Continued metformin 1,000 mg tablet 1,000 mg PO BID Qty: 180 1RF carvedilol 25 mg tablet 25 mg PO BID Qty: 180 3RF Rx Instructions: must administer with a meal/food atorvastatin 20 mg tablet 20 mg PO PM amlodipine 10 mg tablet 10 mg PO PM lisinopril 40 mg tablet 40 mg PO PM Patient Comments: hs Xarelto 20 mg tablet 20 mg PO PM Rx Instructions: must administer with evening meal doxycycline hyclate 100 mg capsule 100 mg PO BID 7 Days Qty: 14 0RF Rx Instructions: additional 7 days to complete 14 day course Discharge Orders: Discharge Order (Routine); Ordered 03/16/23 Ordered By: Katie Kevin Admission Data Admit Date/Time: 03/14/23 14:06 Attending Provider: Michi Telles Admit Provider: Juanjo Bond Primary Care Provider: Germán Ford Other Providers: Juanjo Bond Supervising Physician Co-Signing Physician Notes The patient was not seen by me. The chart was reviewed. Case discussed with ATUL Isidro. Agree with assessment and plan Coding Level of Care Code 33284 INP/OBS DISCH >30 MIN Diagnoses Cellulitis of right leg L03.115 Atrial fibrillation I48.91 Type 2 diabetes mellitus E11.9 Obstructive sleep apnea G47.33 Hypertension I10
[2023-03-16] MEDS ORDERED: DOXYCYCLINE HYCLATE 100 MG CAP PO SCH (21:00)
[2023-03-16] MEDS ORDERED: SULFAMETHOXAZOLE/TRIMETHOPRIM DS 800/160MG TAB PO SCH (21:00)
[2023-03-19 15:38] LABS: 18KDIGG Band NON-REACTIVE; 23KDIGG Band NON-REACTIVE; 23KDIGM Band REACTIVE; 28KDIGG Band NON-REACTIVE; 30KDIGG Band NON-REACTIVE; 39KDIGG Band NON-REACTIVE; 39KDIGM Band NON-REACTIVE; 41KDIGG Band REACTIVE; 41KDIGM Band NON-REACTIVE; 45KDIGG Band NON-REACTIVE; 58KDIGG Band NON-REACTIVE; 66KDIGG Band NON-REACTIVE; 93KDIGG Band NON-REACTIVE; Lyme Antibodies, WB IgG NEGATIVE (NEGATIVE); Lyme Antibodies, WB IgM NEGATIVE (NEGATIVE)
== END 2023-03-16 14:15 | disposition home or self-care (01) ==
LOC: ED 09:15 → EDINP 09:15 → SUATTDRO 14:06 → 3N 17:05